=== PATIENT | female | born 1940 | race Two or more races ===

== ENCOUNTER 2017-10-02 02:39 | Inpatient (IN) | payer MEDICARE ==
[2017-10-02] MEDS ORDERED: FUROSEMIDE INJ/PF 40 MG/4 ML SDV IV ONE (03:02)
[2017-10-02] MEDS ORDERED: LORAZEPAM INJ 2 MG/1 ML VIAL IV ONE (03:02)
--- NOTE | 2017-10-02 03:02 | ER Document Report ---
ED General - General Stated Complaint: SHORTNESS OF BREATH Time Seen by Provider: 10/02/17 02:44 Notes: Patient is a 69-year-old female presents with complaint of sudden onset of shortness of breath when 11 PM. She is down visiting from [place]. She came in via a 2 hour flight approximately 1-2 weeks ago. No recent fevers or infections. No vomiting. She admits to some pressure in her chest and some difficulty breathing. She does have history of atrial fibrillation CHF. She was first diagnosed 1 year ago in [place]. At that time she was placed on Eliquis and medications for rate control. She continues to be on Cardizem as well as Eliquis as well as several other medications for blood pressure and high cholesterol diabetes. She does not have a local primary care doctor. She does admit to some anxiety but says she always feels little bit anxious whenever she is in the hospital. She does admit that she has some pain in both her legs. Said the pain is equal and she is also had some swelling. Patient is Guamanian-speaking and therefore had assistance from Amy Guamanian-speaking nurse, to help translate. - Related Data Allergies/Adverse Reactions: acetaminophen [From Tylenol] Allergy (Verified 10/02/17 03:15) Penicillins Allergy (Verified 10/02/17 03:15) adhesive tape Adverse Reaction (Verified 10/02/17 03:15) Past Medical History - Social History Smoking Status: Unknown if Ever Smoked Frequency of alcohol use: None Drug Abuse: None Family History: Reviewed & Not Pertinent Review of Systems - Review of Systems Notes: My Normal Review Basic REVIEW OF SYSTEMS: CONSTITUTIONAL : Denies fever, chills, or sweats. Denies recent illness. EENT: Denies eye, ear, throat, or mouth pain or symptoms. Denies nasal or sinus congestion. CARDIOVASCULAR: Chest pressure. RESPIRATORY: Difficulty breathing. GASTROINTESTINAL: Denies abdominal pain. Denies nausea, vomiting, or diarrhea. MUSCULOSKELETAL: Denies neck or back pain or joint pain or swelling. SKIN: Denies rash or skin lesions. HEMATOLOGIC : On Eliquis NEUROLOGICAL: Denies altered mental status or loss of consciousness. Denies headache. Denies weakness or paralysis or loss of use of either side. Denies problems with gait or speech. Denies sensory or motor loss. ALL OTHER SYSTEMS REVIEWED AND NEGATIVE. Physical Exam - Vital signs Vitals: Resp BP Pulse Ox 34 H 113/88 H 100 10/02/17 02:48 10/02/17 02:48 10/02/17 02:48 - Notes Notes: General Appearance: Well nourished, alert, cooperative, no acute distress, no obvious discomfort. Vitals: reviewed, See vital signs table. Head: no swelling or tenderness to the head Eyes: PERRL, EOMI, Conjuctiva clear Mouth: No decreasd moisture Throat: No tonsillar inflammation, No airway obstruction Neck: Supple, no neck tenderness Lungs: No wheezing, No rales, No rhonci, mild accessory muscle use. Some tachypnea. Heart: Tachycardic rate, irregular rythm, No murmur, no rub Abdomen: Normal BS, soft, No rigidity, No abdominal tenderness, No guarding, no rebound, no abdominal masses, no organomegaly Extremities: strength 5/5 in all extremities, good pulses in all extremities, no swelling or tenderness in the extremities, 2+ bilateral lower extremity edema. Skin: warm, dry, appropriate color, no rash Neuro: speech clear, oriented x 3, normal affect, responds appropriately to questions. Course - Re-evaluation Re-evalutation: 10/02/17 04:08 Patient continues to have some dyspnea. Number the patient goes to move to go to the toilet she does have increased difficulty breathing and her heart rate goes well up. We have started on Cardizem drip. Given her Lasix. Chest x-ray not yet read by radiology however to me appears that she has some pulmonary vascular congestion on the chest x-ray. Feel that she does require admission. I did speak with the hospitalist, Dr. Johnson, who agrees to evaluate the patient for admission Patient does complain of some back pain. Seems to be worse with movement. I do not suspect PE and that the patient is already on Eliquis and the patient has signs for vascular congestion on chest x-ray in conjunction with A. fib with RVR. This is more consistent with a CHF exacerbation. Dictation of this chart was performed using voice recognition software; therefore, there may be some unintended grammatical errors. 10/02/17 04:09 - Vital Signs Vital signs: Temp Pulse Resp BP Pulse Ox 22 H 145/113 H 97 10/02/17 03:03 10/02/17 03:03 10/02/17 03:03 - Laboratory Result Diagrams: 10/02/17 03:08 10/02/17 03:08 Laboratory results interpreted by me: 10/02/17 10/02/17 03:08 03:08 Glucose 199 H NT-Pro-B Natriuret Pep 663 H - EKG Interpretation by Me Additional EKG results interpreted by me: 10/02/17 03:05 EKG is reviewed and interpreted by me. EKG shows atrial fibrillation with rate of [address] segment elevation or depression. QRS duration QTc intervals are within normal range. No old EKG available for comparison. Discharge - Discharge Clinical Impression: Atrial fibrillation with RVR CHF (congestive heart failure) Qualifiers: Heart failure type: unspecified Heart failure chronicity: acute on chronic Qualified Code(s): I50.9 - Heart failure, unspecified Condition: Stable Disposition: ADMITTED INPATIENT Admitting Provider: Hospitalist Unit Admitted: [facility]
[2017-10-02 03:20] LABS: ABSOLUTE BASOPHILS # (AUTO) 0.1 10^3/uL (0.0-0.2); ABSOLUTE EOSINOPHILS # (AUTO) 0.1 10^3/uL (0.0-0.6); ABSOLUTE MONOCYTES (AUTO) 0.6 10^3/uL (0.1-1.4); ABSOLUTE NEUT (AUTO) 4.4 10^3/uL (1.7-8.2); BASOPHILS % (AUTO) 0.6 % (0-2); EOSINOPHILS % (AUTO) 1.8 % (0-6); HEMATOCRIT 39.6 % (36.0-47.0); HEMOGLOBIN 13.2 g/dL (12.0-15.5); LYMPHOCYTES % (AUTO) 36.5 % (13-45); MEAN CORPUSCULAR HEMOGLOBIN 30.6 pg (27.0-33.4); MEAN CORPUSCULAR HGB CONC 33.3 g/dL (32.0-36.0); MEAN CORPUSCULAR VOLUME 92 fl (80-97); MONOCYTES % (AUTO) 7.7 % (3-13); PLATELET COUNT 292 10^3/uL (150-450); RED BLOOD COUNT 4.32 10^6/uL (3.72-5.28); RED CELL DISTRIBUTION WIDTH 13.8 % (11.5-14.0); SEGMENTED NEUTROPHILS % (AUTO) 53.4 % (42-78); TOTAL CELLS COUNTED % (AUTO) 100 %; WHITE BLOOD COUNT 8.3 10^3/uL (4.0-10.5)
[2017-10-02 03:39] LABS: ALANINE AMINOTRANSFERASE 38 U/L (9-52); ALBUMIN 4.2 g/dL (3.5-5.0); ALKALINE PHOSPHATASE 74 U/L (38-126); ANION GAP 13 (5-19); ASPARTATE AMINO TRANSFERASE 26 U/L (14-36); BILIRUBIN,DIRECT 0.1 mg/dL (0.0-0.4); BILIRUBIN,TOTAL 0.2 mg/dL (0.2-1.3); BLOOD UREA NITROGEN 12 mg/dL (7-20); CALCIUM 9.4 mg/dL (8.4-10.2); CARBON DIOXIDE 25 mmol/L (22-30); CHLORIDE 103 mmol/L (98-107); GLUCOSE 199 mg/dL (75-110); SODIUM 141.2 mmol/L (137-145); TOTAL PROTEIN 6.9 g/dL (6.3-8.2)
[2017-10-02] MEDS ORDERED: DILTIAZEM HCL INJ 25 MG/5 ML VIAL IV ONE (03:45)
[2017-10-02] MEDS ORDERED: DILTIAZEM HCL/D5W 125 MG/125 ML RTUINJ IV PRN ×2 (03:46→04:04)
[2017-10-02 03:56] LABS: TROPONIN I 0.036 ng/mL
[2017-10-02] MEDS ORDERED: MAG HYDROX/AL HYDROX/SIMETH SUSP 30 ML UDCUP PO PRN (04:04)
--- NOTE | 2017-10-02 04:10 | RADIOLOGY REPORT (SQ) ---
EXAM DESCRIPTION: CHEST SINGLE VIEW CLINICAL HISTORY: 77 years Female, dyspnea COMPARISON: None. NUMBER OF VIEWS/TECHNIQUE: 1/AP LIMITATIONS: None. FINDINGS: Small right basilar opacity, moderate central pulmonary edema pattern, mild interstitial markings, thickened right minor fissure, normal cardiac silhouette, atherosclerosis, and intact bony thorax. IMPRESSION: [id number] pulmonary edema pattern with likely small right effusion. Differential diagnosis includes small right basilar pneumonia/atelectasis. Recommend CR/CT surveillance including at 7-12 weeks following initiation of clinically warranted therapy.
[2017-10-02] MEDS ORDERED: HEPARIN SOD (PORCINE) 5,000 UNIT/ML 1 ML SYRINGE SUBCUT SCH (06:00)
--- NOTE | 2017-10-02 06:50 | PDOC H&P ---
History of Present Illness Admission Date/PCP: 10/02/17 04:19 Patient complains of: Shortness of breath History of Present Illness: ANOOP JHAVERI is a 77 year old Armenian-speaking only female with a past medical history of diabetes, osteoarthritis and atrial fibrillation who is visiting from [place]. Patient presents with 12 hours of palpitations and shortness of breath denying chest pain nausea vomiting. In the emergency room she is found to have uncontrolled A. fib with RVR in the 140s with a chest x- ray with mild pulmonary edema but otherwise unremarkable workup. Evaluation of her medications bottles suggest she may have missed up to 2 weeks of Cardizem. That said she is treated with oxygen IV Lasix and diltiazem and referred to the hospitalist for admission. Past Medical History Cardiac Medical History: Reports: Atrial Fibrillation, Hypertension Social History Information Source: Patient Lives with: Family Smoking Status: Unknown if Ever Smoked Frequency of Alcohol Use: None Drugs: None - Advance Directive Resuscitation Status: Full Code Family History Family History: DM, Hypertension Parental Family History Reviewed: Yes Children Family History Reviewed: Yes Sibling(s) Family History Reviewed.: Yes Medication/Allergy Home Medications: Apixaban [Eliquis] 1 tab PO BID 10/02/17 Cilostazol [Cilostazol] 1 tab PO BID 10/02/17 Diltiazem HCl [Cartia Xt] 1 cap PO DAILY 10/02/17 Duloxetine HCl [Duloxetine HCl] 1 cap PO DAILY 10/02/17 Gabapentin [Gabapentin] 1 cap PO DAILY 10/02/17 Glipizide [Glipizide] 1 tab PO DAILY 10/02/17 Losartan Potassium [Losartan Potassium] 1 tab PO DAILY 10/02/17 Metformin HCl [Metformin HCl] 1 tab PO BID 10/02/17 Omeprazole [Omeprazole] 1 cap PO BID 10/02/17 Pravastatin Sodium [Pravastatin Sodium] 1 tab PO DAILY 10/02/17 Spironolactone [Spironolactone] 1 tab PO DAILY 10/02/17 Allergies/Adverse Reactions: acetaminophen [From Tylenol] Allergy (Verified 10/02/17 03:15) Penicillins Allergy (Verified 10/02/17 03:15) adhesive tape Adverse Reaction (Verified 10/02/17 03:15) Review of Systems Constitutional: ABSENT: chills, fever(s), headache(s), weight gain, weight loss Eyes: ABSENT: visual disturbances Ears: ABSENT: hearing changes Cardiovascular: PRESENT: as per HPI, dyspnea on exertion, palpitations. ABSENT : chest pain, edema, orthropnea Respiratory: PRESENT: dyspnea. ABSENT: cough, hemoptysis Gastrointestinal: ABSENT: abdominal pain, constipation, diarrhea, hematemesis, hematochezia, nausea, vomiting Genitourinary: ABSENT: dysuria, hematuria Musculoskeletal: ABSENT: joint swelling Integumentary: ABSENT: rash, wounds Neurological: ABSENT: abnormal gait, abnormal speech, confusion, dizziness, focal weakness, syncope Psychiatric: ABSENT: anxiety, depression, homidical ideation, suicidal ideation Endocrine: ABSENT: cold intolerance, heat intolerance, polydipsia, polyuria Hematologic/Lymphatic: ABSENT: easy bleeding, easy bruising Physical Exam Vital Signs: Temp Pulse Resp BP Pulse Ox 98.9 F 22 H 141/93 H 99 10/02/17 04:04 10/02/17 06:02 10/02/17 06:02 10/02/17 06:02 General appearance: PRESENT: cooperative, mild distress, obese Head exam: PRESENT: atraumatic, normocephalic Eye exam: PRESENT: conjunctiva pink, EOMI, PERRLA. ABSENT: scleral icterus Ear exam: PRESENT: normal external ear exam Mouth exam: PRESENT: moist, tongue midline Neck exam: ABSENT: carotid bruit, JVD, lymphadenopathy, thyromegaly Respiratory exam: PRESENT: accessory muscle use, crackles, tachypnea Cardiovascular exam: PRESENT: irregular rhythm, tachycardia Pulses: PRESENT: normal carotid pulses Vascular exam: PRESENT: normal capillary refill GI/Abdominal exam: PRESENT: normal bowel sounds, soft. ABSENT: distended, guarding, mass, organolmegaly, rebound, tenderness Rectal exam: PRESENT: deferred Extremities exam: PRESENT: full ROM, +1 edema. ABSENT: calf tenderness, clubbing, pedal edema Neurological exam: PRESENT: alert, awake, oriented to person, oriented to place , oriented to time, oriented to situation, CN II-XII grossly intact. ABSENT: motor sensory deficit Psychiatric exam: PRESENT: appropriate affect, normal mood. ABSENT: homicidal ideation, suicidal ideation Skin exam: PRESENT: dry, intact, warm. ABSENT: cyanosis, rash Results Impressions: Chest X-Ray 10/02/17 02:58 IMPRESSION: [id number] pulmonary edema pattern with likely small right effusion. Differential diagnosis includes small right basilar pneumonia/atelectasis. Recommend CR/CT surveillance including at 7-12 weeks following initiation of clinically warranted therapy. Assessment & Plan - Diagnosis (1) Atrial fibrillation with RVR Is this a current diagnosis for this admission?: Yes Plan: Telemetry bed, IV Cardizem transition to p.o., education. (2) CHF (congestive heart failure) Qualifiers: Heart failure type: unspecified Heart failure chronicity: acute on chronic Qualified Code(s): I50.9 - Heart failure, unspecified Is this a current diagnosis for this admission?: Yes Plan: Secondary to A. fib with RVR, IV Lasix initiated, follow-up chemistry (3) Diabetes Is this a current diagnosis for this admission?: Yes Plan: Outpatient regiment with sliding scale insulin coverage. - Time Time Spent: 30 to 50 Minutes
[2017-10-02 07:06] LABS: ABSOLUTE BASOPHILS # (AUTO) 0.1 10^3/uL (0.0-0.2); ABSOLUTE EOSINOPHILS # (AUTO) 0.1 10^3/uL (0.0-0.6); ABSOLUTE LYMPHOCYTES (AUTO) 3.2 10^3/uL (0.5-4.7); ABSOLUTE MONOCYTES (AUTO) 0.8 10^3/uL (0.1-1.4); ABSOLUTE NEUT (AUTO) 5.7 10^3/uL (1.7-8.2); BASOPHILS % (AUTO) 0.8 % (0-2); EOSINOPHILS % (AUTO) 1.1 % (0-6); HEMATOCRIT 39.3 % (36.0-47.0); HEMOGLOBIN 13.2 g/dL (12.0-15.5); LYMPHOCYTES % (AUTO) 32.2 % (13-45); MEAN CORPUSCULAR HEMOGLOBIN 30.9 pg (27.0-33.4); MEAN CORPUSCULAR HGB CONC 33.6 g/dL (32.0-36.0); MEAN CORPUSCULAR VOLUME 92 fl (80-97); MONOCYTES % (AUTO) 7.9 % (3-13); PLATELET COUNT 285 10^3/uL (150-450); RED BLOOD COUNT 4.28 10^6/uL (3.72-5.28); RED CELL DISTRIBUTION WIDTH 13.6 % (11.5-14.0); TOTAL CELLS COUNTED % (AUTO) 100 %; WHITE BLOOD COUNT 9.9 10^3/uL (4.0-10.5)
[2017-10-02 07:19] LABS: ANION GAP 12 (5-19); BLOOD UREA NITROGEN 11 mg/dL (7-20); CALCIUM 9.2 mg/dL (8.4-10.2); CARBON DIOXIDE 27 mmol/L (22-30); CHLORIDE 102 mmol/L (98-107); GLUCOSE 213 mg/dL (75-110); POTASSIUM 4.1 mmol/L (3.6-5.0); SODIUM 141.2 mmol/L (137-145)
[2017-10-02] MEDS ORDERED: APIXABAN 5 MG TABLET PO SCH (08:30)
[2017-10-02] MEDS ORDERED: GLUCAGON,HUMAN RECOMB 1 MG INJ IM PRN (08:33)
[2017-10-02] MEDS ORDERED: DEXTROSE 40% GEL 15 GM TUBE PO PRN ×2 (08:33)
[2017-10-02] MEDS ORDERED: DEXTROSE 50%-WATER 25 GM/50 ML DISP.SYRIN IV PRN ×2 (08:33)
--- NOTE | 2017-10-02 08:57 | EKG REPORT ---
SEVERITY:- ABNORMAL ECG - ATRIAL FIBRILLATION BORDERLINE INFERIOR Q WAVES NONSPECIFIC T ABNORMALITIES, ANT-LAT LEADS : Confirmed by: Norberto Guillaume MD 02-Oct-2017 08:57:01
[2017-10-02] MEDS: APIXABAN 5 MG TABLET PO SCH ×2 (09:20→21:09)
[2017-10-02] MEDS: GABAPENTIN 300 MG CAPSULE PO SCH (09:20)
[2017-10-02] MEDS: DOCUSATE SODIUM 100 MG CAPSULE PO SCH ×2 (09:20→17:50)
[2017-10-02] MEDS: FUROSEMIDE INJ/PF 20 MG/2 ML SDV IV SCH ×2 (09:21→17:50)
[2017-10-02] MEDS ORDERED: CILOSTAZOL 100 MG TABLET PO ONE (09:30)
[2017-10-02] MEDS ORDERED: DILTIAZEM HCL 60 MG TABLET PO ONE ×2 (09:30→13:00)
--- NOTE | 2017-10-02 10:12 | Progress Note ---
Provider Note Provider Note: This 77-year-old woman who was admitted to the hospitalist service this morning. She was admitted with A. fib with RVR, congestive heart failure. I have seen and evaluated this morning. Patient states that she is feeling considerably better. She is breathing better. She is not having chest pain or feeling of palpitations. Her breathing does not feel back to normal but better nonetheless. No nausea vomiting constipation or diarrhea. She has been urinating without difficulty. On exam she is lying in her hospital stretcher awake alert oriented no acute distress wearing nasal cannula oxygen. Mucous membranes are moist, tongue midline, neck is supple. She has an irregularly irregular cardiac rhythm and a non-tachycardic rate. Trace pedal edema bilaterally. She has decreased breath sounds at the bilateral bases. No wheezes or rhonchi. Abdomen obese soft nontender nondistended. Assessment: 77-year-old woman with uncontrolled A. fib with RVR, CHF with exacerbation, slightly elevated troponin. Underlying problems include type 2 diabetes, restless leg syndrome, hypertension. Plan: 1. A. fib with RVR: Continue diltiazem drip and start her oral diltiazem at 60 mg p.o. every 8 hours. We will wean down drip as indicated her heart rate below 110. She is on Eliquis for stroke prophylaxis and that has been restarted 2. CHF exacerbation. This patient is from out of town and we do not have an echo in the system. She is on Lasix 20 mg IV every 12 hours for now. Will monitor her electrolytes and her clinical status closely. She does have a pleural effusion which may be related to the CHF but may need further workup if it does not improve. 3. Elevated troponin. Patient is currently chest pain-free. We will continue to monitor troponins. EKG does have nonspecific changes and old Q waves. She does have diabetes, coronary equivalent. 4. Hypertension. Better controlled with the diltiazem drip. Will start her losartan probably later today while monitoring her blood pressure for now. 5. Type 2 diabetes. Will hold her metformin while she is in the hospital and start bolus insulin as needed. DVT prophylaxis she is on Eliquis Diabetic diet to continue
[2017-10-02] MEDS ORDERED: DILTIAZEM HCL 60 MG TABLET PO SCH (14:00)
[2017-10-02] MEDS ORDERED: DILTIAZEM HCL 90 MG TABLET PO SCH (14:00)
[2017-10-02] MEDS: CILOSTAZOL 100 MG TABLET PO SCH (15:33)
[2017-10-02] MEDS ORDERED: LEVOFLOXACIN 500 MG TABLET PO ONE (16:12)
[2017-10-02] MEDS ORDERED: LEVALBUTEROL HCL NEB 1.25 MG/3 ML AMPUL NEB PRN (16:14)
[2017-10-02] MEDS: IPRATROPIUM/ALBUTEROL 0.5-2.5 MG/3 ML AMPUL NEB SCH (19:33)
[2017-10-02] MEDS: DILTIAZEM HCL 60 MG TABLET PO SCH (21:09)
[2017-10-02] MEDS ORDERED: LACTULOSE SYRUP 20 GM/30 ML UDCUP PO ONE (21:15)
[2017-10-03] MEDS: IPRATROPIUM/ALBUTEROL 0.5-2.5 MG/3 ML AMPUL NEB SCH ×4 (01:48→19:36)
[2017-10-03 04:57] LABS: ABSOLUTE BASOPHILS # (AUTO) 0.1 10^3/uL (0.0-0.2); ABSOLUTE EOSINOPHILS # (AUTO) 0.1 10^3/uL (0.0-0.6); ABSOLUTE LYMPHOCYTES (AUTO) 2.6 10^3/uL (0.5-4.7); ABSOLUTE MONOCYTES (AUTO) 0.6 10^3/uL (0.1-1.4); ABSOLUTE NEUT (AUTO) 3.7 10^3/uL (1.7-8.2); BASOPHILS % (AUTO) 0.9 % (0-2); EOSINOPHILS % (AUTO) 1.4 % (0-6); HEMATOCRIT 37.1 % (36.0-47.0); HEMOGLOBIN 12.5 g/dL (12.0-15.5); LYMPHOCYTES % (AUTO) 36.8 % (13-45); MEAN CORPUSCULAR HGB CONC 33.7 g/dL (32.0-36.0); MEAN CORPUSCULAR VOLUME 92 fl (80-97); MONOCYTES % (AUTO) 8.4 % (3-13); PLATELET COUNT 253 10^3/uL (150-450); RED BLOOD COUNT 4.03 10^6/uL (3.72-5.28); SEGMENTED NEUTROPHILS % (AUTO) 52.5 % (42-78); TOTAL CELLS COUNTED % (AUTO) 100 %; WHITE BLOOD COUNT 7.1 10^3/uL (4.0-10.5)
[2017-10-03 05:26] LABS: ANION GAP 13 (5-19); BLOOD UREA NITROGEN 11 mg/dL (7-20); CALCIUM 8.9 mg/dL (8.4-10.2); CARBON DIOXIDE 30 mmol/L (22-30); CHLORIDE 100 mmol/L (98-107); CREATINE KINASE 44 U/L (30-135); GLUCOSE 178 mg/dL (75-110); SODIUM 143.2 mmol/L (137-145)
[2017-10-03] MEDS: DILTIAZEM HCL 60 MG TABLET PO SCH ×3 (05:44→17:10)
[2017-10-03] MEDS: APIXABAN 5 MG TABLET PO SCH ×2 (10:15→22:10)
[2017-10-03] MEDS: FUROSEMIDE INJ/PF 20 MG/2 ML SDV IV SCH ×2 (10:15→17:10)
[2017-10-03] MEDS: GABAPENTIN 300 MG CAPSULE PO SCH (10:15)
[2017-10-03] MEDS: DOCUSATE SODIUM 100 MG CAPSULE PO SCH ×2 (10:15→17:10)
[2017-10-03] MEDS: CILOSTAZOL 100 MG TABLET PO SCH ×2 (10:15→17:10)
[2017-10-03] MEDS ORDERED: SPIRONOLACTONE 25 MG TABLET PO ONE (13:00)
--- NOTE | 2017-10-03 15:00 | PDOC PROGRESS REPORT ---
Subjective Progress Note for:: 10/03/17 Subjective:: Pt is feeling better. Her breathing is close to normal. She tells me she has nasal septum problems since childhood that cause her to have a nasal sound. She would like to go home but understands she may not be quite ready. No chest discomfort. Her HR continues to be labile. NO fever or chills, no abd pain or bowel problems, no dysuria. Has been coughing some without phlegm. Slept better last night,. Eating fine. Reason For Visit: CONGESTIVE HEART FAILURE,ATRIAL FIBRILLATION WITH Physical Exam Vital Signs: Temp Pulse Resp BP Pulse Ox 98.1 F 87 18 117/81 97 10/03/17 12:18 10/03/17 14:07 10/03/17 14:07 10/03/17 12:18 10/03/17 14:07 Intake & Output 10/02/17 10/03/17 10/04/17 06:59 06:59 06:59 Intake Total 150 Output Total 400 1200 Balance -400 -1050 Weight 98.5 kg General appearance: PRESENT: no acute distress, cooperative, morbidly obese Head exam: PRESENT: atraumatic, normocephalic Eye exam: PRESENT: conjunctiva pink, EOMI Ear exam: PRESENT: normal external ear exam Mouth exam: PRESENT: moist, neck supple Neck exam: ABSENT: lymphadenopathy Respiratory exam: PRESENT: decreased breath sounds, wheezes. ABSENT: rales, rhonchi, unlabored Cardiovascular exam: PRESENT: irregular rhythm, tachycardia GI/Abdominal exam: PRESENT: normal bowel sounds, soft. ABSENT: distended, tenderness Rectal exam: PRESENT: deferred Extremities exam: ABSENT: tenderness Neurological exam: PRESENT: alert, awake, oriented to person, oriented to place , oriented to situation, CN II-XII grossly intact Psychiatric exam: PRESENT: appropriate affect. ABSENT: anxious Skin exam: PRESENT: dry, intact, warm Results Laboratory Results: 10/03/17 04:19 10/03/17 04:19 10/03/17 10/03/17 04:19 04:19 WBC 7.1 RBC 4.03 Hgb 12.5 Hct 37.1 MCV 92 MCH 31.0 MCHC 33.7 RDW 14.0 Plt Count 253 Seg Neutrophils % 52.5 Lymphocytes % 36.8 Monocytes % 8.4 Eosinophils % 1.4 Basophils % 0.9 Absolute Neutrophils 3.7 Absolute Lymphocytes 2.6 Absolute Monocytes 0.6 Absolute Eosinophils 0.1 Absolute Basophils 0.1 Sodium 143.2 Potassium 4.0 Chloride 100 Carbon Dioxide 30 Anion Gap 13 BUN 11 Creatinine 0.65 Est GFR ( Amer) > 60 Est GFR (Non-Af Amer) > 60 Glucose 178 H Calcium 8.9 10/02/17 10/02/17 10/02/17 09:55 15:40 21:45 Creatine Kinase CK-MB (CK-2) Troponin I 0.030 0.031 0.026 10/03/17 10/03/17 04:19 04:19 Creatine Kinase 44 CK-MB (CK-2) 1.13 Troponin I Impressions: Chest X-Ray 10/02/17 02:58 IMPRESSION: [id number] pulmonary edema pattern with likely small right effusion. Differential diagnosis includes small right basilar pneumonia/atelectasis. Recommend CR/CT surveillance including at 7-12 weeks following initiation of clinically warranted therapy. Assessment & Plan - Diagnosis (1) HTN (hypertension) Qualifiers: Hypertension type: essential hypertension Qualified Code(s): I10 - Essential (primary) hypertension Is this a current diagnosis for this admission?: Yes Plan: Pressure has been well controlled and was 117/81 this morning. I have increased her diltiazem secondary to heart rate and we will monitor blood pressure closely. (2) Restless leg syndrome Is this a current diagnosis for this admission?: Yes Plan: Stable, continue Pletal (3) Atrial fibrillation with RVR Is this a current diagnosis for this admission?: Yes Plan: Patient's heart rate has been in the 80s this morning in the low 100s this afternoon. When she got up to walk her heart rate was in the 140s. I have increased her diltiazem from 60 mg every 8 hours to 60 mg p.o. every 6 hours. For this reason I am keeping her in the hospital again night and will reevaluate her tomorrow. (4) CHF (congestive heart failure) Qualifiers: Heart failure type: unspecified Heart failure chronicity: acute on chronic Qualified Code(s): I50.9 - Heart failure, unspecified Is this a current diagnosis for this admission?: Yes Plan: Patient has pulmonary edema and pleural effusions on chest x-ray. Her breathing is improving with Lasix 20 mg IV every 12 hours. Will recheck chest x -ray tomorrow. Will order echocardiogram for tomorrow as well. (5) Diabetes Qualifiers: Diabetes mellitus type: type 2 Is this a current diagnosis for this admission?: Yes Plan: Continue current care. Will restart her on her oral glycemic meds on discharge. (6) Bronchitis Is this a current diagnosis for this admission?: Yes Plan: I started patient on doxycycline 100 mg p.o. twice daily. There was note of possible pneumonia on chest x-ray but clinically patient does not appear to have pneumonia. She is not febrile. She does not have a white blood cell count. Not producing phlegm. For now I will treat her for bronchitis and will follow closely. - Time Time Spent with patient: 25-34 minutes Medications reviewed and adjusted accordingly: Yes Anticipated discharge: Home Within: within 48 hours
--- NOTE | 2017-10-03 16:22 | RADIOLOGY REPORT (SQ) ---
EXAM DESCRIPTION: CHEST PA/LAT COMPLETED DATE/TIME: 10/03/2017 4:09 pm REASON FOR STUDY: eval pulmonary edema COMPARISON: 10/02/2017. NUMBER OF VIEWS: Two views. TECHNIQUE: Frontal and lateral radiographic views of the chest acquired. LIMITATIONS: None. FINDINGS: LUNGS AND PLEURA: No opacities, masses or pneumothorax. No pleural effusion. MEDIASTINUM AND HILAR STRUCTURES: No masses or contour abnormality. HEART AND VASCULAR STRUCTURES: Cardiac enlargement. Vascular congestion. BONES: No acute findings. HARDWARE: None in the chest. OTHER: No other significant finding. IMPRESSION: CARDIAC ENLARGEMENT. VASCULAR CONGESTION. NO CHANGE. TECHNICAL DOCUMENTATION: JOB ID: [id number] [employer]- All Rights Reserved Reading location - IP/workstation name: [email or web address]
[2017-10-03] MEDS: INSULIN LISPRO 100 UNIT/ML 3 ML VIAL SUBCUT PRN ×2 (17:22→22:10)
[2017-10-03] MEDS ORDERED: NA PHOS,M-B/NA PHOS,DI-BA (ADULT) 133 ML ENEMA PR PRN (21:31)
[2017-10-03] MEDS ORDERED: LACTULOSE SYRUP 20 GM/30 ML UDCUP PO ONE (21:45)
[2017-10-03] MEDS: DOXYCYCLINE HYCLATE 100 MG TABLET PO SCH (22:10)
[2017-10-03] MEDS: DILTIAZEM HCL 90 MG TABLET PO SCH (23:15)
[2017-10-04] MEDS: IPRATROPIUM/ALBUTEROL 0.5-2.5 MG/3 ML AMPUL NEB SCH ×4 (01:54→20:20)
[2017-10-04 05:15] LABS: HEMATOCRIT 36.6 % (36.0-47.0); HEMOGLOBIN 12.4 g/dL (12.0-15.5); MEAN CORPUSCULAR HEMOGLOBIN 31.1 pg (27.0-33.4); MEAN CORPUSCULAR HGB CONC 33.9 g/dL (32.0-36.0); MEAN CORPUSCULAR VOLUME 92 fl (80-97); PLATELET COUNT 271 10^3/uL (150-450); RED BLOOD COUNT 3.99 10^6/uL (3.72-5.28); RED CELL DISTRIBUTION WIDTH 13.7 % (11.5-14.0)
[2017-10-04 05:32] LABS: ANION GAP 12 (5-19); BLOOD UREA NITROGEN 13 mg/dL (7-20); CALCIUM 8.9 mg/dL (8.4-10.2); CARBON DIOXIDE 28 mmol/L (22-30); CHLORIDE 101 mmol/L (98-107); GLUCOSE 182 mg/dL (75-110); POTASSIUM 3.4 mmol/L (3.6-5.0); SODIUM 140.7 mmol/L (137-145)
[2017-10-04] MEDS: DILTIAZEM HCL 90 MG TABLET PO SCH ×3 (06:08→17:03)
[2017-10-04] MEDS: CILOSTAZOL 100 MG TABLET PO SCH ×2 (08:17→15:58)
[2017-10-04] MEDS ORDERED: SPIRONOLACTONE 25 MG TABLET PO SCH (10:00)
[2017-10-04] MEDS: APIXABAN 5 MG TABLET PO SCH ×2 (10:53→21:44)
[2017-10-04] MEDS: SPIRONOLACTONE 25 MG TABLET PO SCH (10:53)
[2017-10-04] MEDS: DOXYCYCLINE HYCLATE 100 MG TABLET PO SCH ×2 (10:53→21:44)
[2017-10-04] MEDS: GABAPENTIN 300 MG CAPSULE PO SCH (10:53)
[2017-10-04] MEDS: DOCUSATE SODIUM 100 MG CAPSULE PO SCH ×2 (10:53→17:03)
[2017-10-04] MEDS: FUROSEMIDE INJ/PF 20 MG/2 ML SDV IV SCH (10:53)
[2017-10-04] MEDS ORDERED: KETOROLAC TROMETHAMINE INJ/PF 30 MG/1 ML SDV IV ONE (12:15)
[2017-10-04] MEDS ORDERED: OXYCODONE HCL IR 5 MG TABLET PO PRN (14:49)
--- NOTE | 2017-10-04 15:05 | PDOC PROGRESS REPORT ---
Subjective Progress Note for:: 10/04/17 Subjective:: The patient is a 77-year-old [place]yan-speaking only female with past medical history of diabetes, osteoarthritis, and atrial fibrillation who was admitted on 10/02/17 with David nelson with RVR. The patient is seen on rounds with the use of translating services. She tells me that she is feeling well today. She denies chest pain, palpitations, dyspnea , orthopnea. Her primary complaint today is sciatica to the right leg which she has experienced in the past. She requests a heating pad and mild pain medication if available. She is hopeful to be discharged soon, however, knows that she has an echocardiogram pending and that her heart rate is still viable which may delay her discharge another day. She has no other questions or concerns. Reason For Visit: CONGESTIVE HEART FAILURE,ATRIAL FIBRILLATION WITH Physical Exam Vital Signs: Temp Pulse Resp BP Pulse Ox 98.7 F 95 18 143/99 H 96 10/04/17 12:16 10/04/17 14:14 10/04/17 14:14 10/04/17 12:16 10/04/17 14:14 Intake & Output 10/03/17 10/04/17 10/05/17 06:59 06:59 06:59 Intake Total 150 450 450 Output Total 1200 Balance -1050 450 450 Weight 98.5 kg 99.3 kg General appearance: PRESENT: no acute distress, cooperative, obese, well- developed, well-nourished Head exam: PRESENT: atraumatic, normocephalic Eye exam: PRESENT: conjunctiva pink, EOMI, PERRLA. ABSENT: scleral icterus Ear exam: PRESENT: normal external ear exam Mouth exam: PRESENT: moist, tongue midline Neck exam: ABSENT: carotid bruit, JVD, lymphadenopathy, thyromegaly Respiratory exam: PRESENT: clear to auscultation sveta, decreased breath sounds - Bibasilar, symmetrical, unlabored. ABSENT: rales, rhonchi, wheezes Cardiovascular exam: PRESENT: irregular rhythm, +S1, +S2. ABSENT: diastolic murmur, rubs, systolic murmur, tachycardia Pulses: PRESENT: normal dorsalis pedis pul Vascular exam: PRESENT: normal capillary refill GI/Abdominal exam: PRESENT: normal bowel sounds, soft. ABSENT: distended, guarding, mass, organolmegaly, rebound, tenderness Rectal exam: PRESENT: deferred Extremities exam: PRESENT: full ROM. ABSENT: calf tenderness, clubbing, pedal edema Neurological exam: PRESENT: alert, awake, oriented to person, oriented to place , oriented to time, oriented to situation, CN II-XII grossly intact. ABSENT: motor sensory deficit Psychiatric exam: PRESENT: appropriate affect, normal mood. ABSENT: homicidal ideation, suicidal ideation Skin exam: PRESENT: dry, intact, warm. ABSENT: cyanosis, rash Results Laboratory Results: 10/04/17 04:26 10/04/17 04:26 10/04/17 10/04/17 04:26 04:26 WBC 7.0 RBC 3.99 Hgb 12.4 Hct 36.6 MCV 92 MCH 31.1 MCHC 33.9 RDW 13.7 Plt Count 271 Sodium 140.7 Potassium 3.4 L Chloride 101 Carbon Dioxide 28 Anion Gap 12 BUN 13 Creatinine 0.55 Est GFR ( Amer) > 60 Est GFR (Non-Af Amer) > 60 Glucose 182 H Calcium 8.9 10/02/17 10/02/17 10/02/17 09:55 15:40 21:45 Creatine Kinase CK-MB (CK-2) Troponin I 0.030 0.031 0.026 10/03/17 10/03/17 04:19 04:19 Creatine Kinase 44 CK-MB (CK-2) 1.13 Troponin I Impressions: Chest X-Ray 10/03/17 00:00 IMPRESSION: CARDIAC ENLARGEMENT. VASCULAR CONGESTION. NO CHANGE. Assessment & Plan - Diagnosis (1) Atrial fibrillation with RVR Is this a current diagnosis for this admission?: Yes Plan: Improved; the patient's heart rate ranges from 80s-95 while at rest but does jump to 117 with minimal activity. The patient denies chest pain or palpitations. The patient is admitted to [facility] on continuous cardiac telemetry. She was initially placed on a diltiazem drip which has been transitioned to p.o. We will continue diltiazem 60 mg every 6 hours. We will continue the patient's home dose Eliquis (2) CHF (congestive heart failure) Qualifiers: Heart failure type: unspecified Heart failure chronicity: acute on chronic Qualified Code(s): I50.9 - Heart failure, unspecified Is this a current diagnosis for this admission?: Yes Plan: The patient was noted to have pulmonary edema with pleural effusions on chest x- ray. ProBNP was elevated to 663. Echocardiogram is pending. Cardiac diet and daily weights. Continue diuresis with IV furosemide. (3) Sciatica, right side Is this a current diagnosis for this admission?: Yes Plan: The patient was provided a one-time dose of Toradol 30 mg IV with slight improvement in her pain. Her home medications gabapentin and Cymbalta are resumed. Will provide oxycodone 2.5 mg q 6 hrs during acute flare. Heating pad is ordered, encourage mobility. (4) Bronchitis Is this a current diagnosis for this admission?: Yes Plan: Improved. The patient was placed on doxycycline 100 mg p.o. twice daily. She is provided scheduled duo nebs and Xopenex as needed. We will monitor closely for consideration p.o. steroids. (5) Diabetes Qualifiers: Diabetes mellitus type: type 2 Is this a current diagnosis for this admission?: Yes Plan: The patient is on a consistent carb diet. Accu-Cheks before meals and at bedtime with Humalog for sliding scale coverage. We will restart her oral glycemic medications upon discharge. (6) HTN (hypertension) Qualifiers: Hypertension type: essential hypertension Qualified Code(s): I10 - Essential (primary) hypertension Is this a current diagnosis for this admission?: Yes Plan: The patient's blood pressure is slightly elevated today. Cardiac diet. She is currently on diltiazem 60 mg every 6 hours. Consider resuming her home medication, losartan. - Time Time Spent with patient: 25-34 minutes Medications reviewed and adjusted accordingly: Yes Anticipated discharge: Home Within: within 24 hours
[2017-10-04] MEDS ORDERED: POTASSIUM CHLORIDE 10 MEQ TABLET.SA PO ONE (16:30)
[2017-10-04] MEDS ORDERED: DULOXETINE HCL 30 MG CAPSULE.DR PO ONE (17:00)
[2017-10-04] MEDS: INSULIN LISPRO 100 UNIT/ML 3 ML VIAL SUBCUT PRN ×2 (17:02→21:48)
--- NOTE | 2017-10-04 18:21 | XCELERA REPORT ---
[address] [address] Transthoracic Echocardiogram Report Name: ANOOP JHAVERI Age: 77 yrs Gender: Female : 1940 Patient Status: Inpatient Patient Location: [address] [place] [address] Study Date: 10/04/2017 02:49 PM Height: 60 in Weight: 217 lb BSA: 1.9 m2 Procedure: A complete two-dimensional transthoracic echocardiogram was performed (2D, M-mode, spectral and color flow Doppler). The study was technically difficult with many images being suboptimal in quality. Reason For Study: eval CHF Ordering Physician: ARI HOWE Performed By: Josefina Davis Interpretation Summary LV EF is 45% The study was technically difficult with many images being suboptimal in quality. Left ventricular systolic function is mildly reduced. There is mild concentric left ventricular hypertrophy. The left ventricle is grossly normal size. Doppler measurements suggest pseudonormalized left ventricular relaxation, which is associated with grade II/IV or mild to moderate diastolic dysfunction Wall motion cannot be accurately commented on, but no definite regional wall motion abnormalities noted. The right ventricular systolic function is normal. The left atrium is moderately dilated. There is no mitral valve stenosis. There is a trace amount of mitral regurgitation There is no aortic valve stenosis No aortic regurgitation is present. There is a trace to mild amount of tricuspid regurgitation There is mild pulmonary hypertension by echo Right ventricular systolic pressure is estimated to be elevated at 30- 40mmHg. There is no pericardial effusion. MMode/2D Measurements & Calculations RVDd: 3.4 cm LVIDd: 5.2 cmFS: 23.4 % Ao root diam: 3.0 cm IVSd: 1.2 cm LVIDs: 4.0 cmEDV(Teich): 130.8 ml LVPWd: 1.2 cmESV(Teich): 70.0 ml Ao root area: 7.2 cm2 EF(Teich): 46.5 % LA dimension: 4.5 cm LVOT diam: 2.0 cm LVOT area: 3.0 cm2 Doppler Measurements & Calculations MV E max rolly: MV P1/2t max rolly: Ao V2 max: LV V1 max P.2 cm/sec 99.7 cm/sec 165.8 cm/sec 5.8 mmHg MV P1/2t: 69.4 msec Ao max PG: LV V1 max: MVA(P1/2t): 3.2 cm2 11.0 mmHg 119.9 cm/sec MV dec slope: PENELOPE(V,D): 2.2 cm2 420.5 cm/sec2 PA V2 max: TR max rolly: 104.1 cm/sec 280.2 cm/sec PA max PG: TR max P.4 mmHg 4.3 mmHg Left Ventricle The left ventricle is grossly normal size. There is mild concentric left ventricular hypertrophy. Left ventricular systolic function is mildly reduced. LV EF is 45%. Doppler measurements suggest pseudonormalized left ventricular relaxation, which is associated with grade II/IV or mild to moderate diastolic dysfunction. Wall motion cannot be accurately commented on, but no definite regional wall motion abnormalities noted. Right Ventricle The right ventricle is grossly normal size. There is normal right ventricular wall thickness. The right ventricular systolic function is normal. Atria The right atrium is normal. The left atrium is moderately dilated. Interarterial septum not well visualized and not well dopplered. Cannot comment on ASD/PFO presence. Mitral Valve The mitral valve is grossly normal. There is no mitral valve stenosis. There is a trace amount of mitral regurgitation. Aortic Valve The aortic valve is not well visualized secondary to technical limitations. There is no aortic valve stenosis. No aortic regurgitation is present. Tricuspid Valve The tricuspid valve is not well visualized, but is grossly normal. There is no tricuspid stenosis. There is a trace to mild amount of tricuspid regurgitation. There is mild pulmonary hypertension by echo. Right ventricular systolic pressure is estimated to be elevated at 30-40mmHg. Pulmonic Valve The pulmonic valve is not well visualized. Great Vessels The aortic root is not well visualized but is probably normal size. The inferior vena cava appeared normal and decreased > 50% with respiration (RAP 5-10 mmHg). Effusions There is no pericardial effusion. : ARI HOWE > Guevara Mejia
[2017-10-05] MEDS: DILTIAZEM HCL 90 MG TABLET PO SCH ×4 (00:07→17:02)
[2017-10-05] MEDS: IPRATROPIUM/ALBUTEROL 0.5-2.5 MG/3 ML AMPUL NEB SCH ×4 (02:25→19:33)
[2017-10-05 05:30] LABS: ANION GAP 12 (5-19); BLOOD UREA NITROGEN 18 mg/dL (7-20); CALCIUM 9.7 mg/dL (8.4-10.2); CARBON DIOXIDE 28 mmol/L (22-30); CHLORIDE 100 mmol/L (98-107); GLUCOSE 212 mg/dL (75-110); SODIUM 139.8 mmol/L (137-145)
[2017-10-05] MEDS: CILOSTAZOL 100 MG TABLET PO SCH ×2 (08:07→17:02)
[2017-10-05] MEDS: INSULIN LISPRO 100 UNIT/ML 3 ML VIAL SUBCUT PRN ×4 (08:08→22:31)
[2017-10-05] MEDS ORDERED: GABAPENTIN 300 MG CAPSULE PO SCH (10:00)
[2017-10-05] MEDS ORDERED: DULOXETINE HCL PO SCH (10:00)
[2017-10-05] MEDS: FUROSEMIDE INJ/PF 20 MG/2 ML SDV IV SCH (10:30)
[2017-10-05] MEDS: GABAPENTIN 300 MG CAPSULE PO SCH (10:30)
[2017-10-05] MEDS: APIXABAN 5 MG TABLET PO SCH ×2 (10:30→21:23)
[2017-10-05] MEDS: DOXYCYCLINE HYCLATE 100 MG TABLET PO SCH ×2 (10:30→21:23)
[2017-10-05] MEDS: DOCUSATE SODIUM 100 MG CAPSULE PO SCH ×2 (10:30→17:02)
[2017-10-05] MEDS: SPIRONOLACTONE 25 MG TABLET PO SCH (10:30)
[2017-10-05] MEDS: DULOXETINE HCL 30 MG CAPSULE.DR PO SCH (10:30)
--- NOTE | 2017-10-05 18:55 | PDOC PROGRESS REPORT ---
Subjective Progress Note for:: 10/05/17 Subjective:: ANOOP JHAVERI is a 77-year-old Central African-speaking only female with a past medical history of diabetes, osteoarthritis, atrial fibrillation who was admitted on 10/02 with AFIB w/RVR. The patient is seen on rounds with the use of translating services. She is sitting on the edge of the bed and tells me that she is feeling well today. She does complain of shortness of breath when she ambulates to the bathroom. Patient denies chest pain or palpitations. Reason For Visit: CONGESTIVE HEART FAILURE,ATRIAL FIBRILLATION WITH Physical Exam Vital Signs: Temp Pulse Resp BP Pulse Ox 97.8 F 75 18 122/98 H 93 10/05/17 15:10 10/05/17 15:10 10/05/17 15:10 10/05/17 15:10 10/05/17 15:10 Intake & Output 10/04/17 10/05/17 10/06/17 06:59 06:59 06:59 Intake Total 450 1580 670 Balance 450 1580 670 Weight 99.3 kg 99.2 kg 99.2 kg General appearance: PRESENT: no acute distress Head exam: PRESENT: atraumatic Eye exam: PRESENT: conjunctiva pink Mouth exam: PRESENT: moist Neck exam: PRESENT: full ROM Respiratory exam: PRESENT: clear to auscultation sveta Cardiovascular exam: PRESENT: irregular rhythm, tachycardia - When ambulating; Pulses: PRESENT: normal radial pulses, +1 pedal pulses bilateral Vascular exam: PRESENT: normal capillary refill GI/Abdominal exam: PRESENT: normal bowel sounds, soft Rectal exam: PRESENT: deferred Extremities exam: PRESENT: full ROM, pedal edema, +1 edema - Generalized edema Musculoskeletal exam: PRESENT: ambulatory, full ROM Neurological exam: PRESENT: alert, altered, awake, oriented to person, oriented to place, oriented to time, oriented to situation Psychiatric exam: PRESENT: appropriate affect Results Laboratory Results: 10/04/17 04:26 10/05/17 04:37 10/05/17 04:37 Sodium 139.8 Potassium 4.0 Chloride 100 Carbon Dioxide 28 Anion Gap 12 BUN 18 Creatinine 0.64 Est GFR ( Amer) > 60 Est GFR (Non-Af Amer) > 60 Glucose 212 H Calcium 9.7 03/03/18 03/03/18 03/03/18 09:55 15:40 21:45 Creatine Kinase CK-MB (CK-2) Troponin I 0.030 0.031 0.026 10/03/17 10/03/17 04:19 04:19 Creatine Kinase 44 CK-MB (CK-2) 1.13 Troponin I Impressions: Chest X-Ray 10/03/17 00:00 IMPRESSION: CARDIAC ENLARGEMENT. VASCULAR CONGESTION. NO CHANGE. Status: Imported from PACS Assessment & Plan - Diagnosis (1) Atrial fibrillation with RVR Is this a current diagnosis for this admission?: Yes Plan: The patient's heart rate ranges from 80-95, however she has frequent episodes where her heart rate will jump to 130, even while at rest. The patient denies chest pain or palpitations but states she is short of breath when ambulating to the bathroom. Continue cardiac telemetry. Increase Cardizem to 180 mg Q12hrs. Continue patient's home dose Eliquis. (2) CHF (congestive heart failure) Qualifiers: Heart failure type: unspecified Heart failure chronicity: acute on chronic Qualified Code(s): I50.9 - Heart failure, unspecified Is this a current diagnosis for this admission?: Yes Plan: The patient was noted to have pulmonary edema with small pleural effusions on chest x-ray. ProBNP was elevated to 663. ECHOcardiogram shows LVEF 45%, mild concentric left ventricular hypertrophy, grade II/IV mild to moderate diastolic dysfunction. Cardiac diet and daily weights. Continue diuresis with IV Lasix, change to PO tomorrow (3) Bronchitis Is this a current diagnosis for this admission?: Yes Plan: Improved. No audible wheezing or productive cough. Currently on doxycycline day 3, will stop at day 5 if patient appears non-toxic (4) Diabetes Qualifiers: Diabetes mellitus type: type 2 Is this a current diagnosis for this admission?: Yes Plan: Continue carb consistent diet. Continue sliding scale insulin. Will restart oral glycemic medications prior to discharge (5) HTN (hypertension) Qualifiers: Hypertension type: essential hypertension Qualified Code(s): I10 - Essential (primary) hypertension Is this a current diagnosis for this admission?: Yes Plan: Blood pressure is currently well controlled. Continue cardiac diet. Cardizem for heart rate control, monitor for HYPOtension since her dose has been increased today (6) Restless leg syndrome Is this a current diagnosis for this admission?: Yes (7) Sciatica, right side Is this a current diagnosis for this admission?: Yes Plan: Patient denies sciatica pain today. She is currently on her home medications gabapentin and Cymbalta. As needed oxycodone for acute flare. Heating pad is ordered, encourage mobility - Time Time Spent with patient: 25-34 minutes Medications reviewed and adjusted accordingly: Yes Anticipated discharge: Home - Inpatient Certification Based on my medical assessment, after consideration of the patient's comorbidities, presenting symptoms, or acuity I expect that the services needed warrant INPATIENT care.: Yes I certify that my determination is in accordance with my understanding of Medicare's requirements for reasonable and necessary INPATIENT services [42 CFR 412.3e].: Yes Medical Necessity: Risk of Complication if Not Cared For in Hospital - Plan Summary Plan Summary: Ultimately, the plan is to discharge the patient back to [place]
[2017-10-05] MEDS: DILTIAZEM HCL 180 MG CAPSULE.CR PO SCH (22:31)
[2017-10-06] MEDS: IPRATROPIUM/ALBUTEROL 0.5-2.5 MG/3 ML AMPUL NEB SCH ×4 (02:03→19:51)
[2017-10-06] MEDS: INSULIN LISPRO 100 UNIT/ML 3 ML VIAL SUBCUT PRN ×3 (07:43→22:26)
[2017-10-06] MEDS: CILOSTAZOL 100 MG TABLET PO SCH ×2 (07:45→17:38)
[2017-10-06] MEDS: SPIRONOLACTONE 25 MG TABLET PO SCH (11:24)
[2017-10-06] MEDS: APIXABAN 5 MG TABLET PO SCH ×2 (11:24→22:26)
[2017-10-06] MEDS: DOXYCYCLINE HYCLATE 100 MG TABLET PO SCH ×2 (11:25→22:26)
[2017-10-06] MEDS: DILTIAZEM HCL 180 MG CAPSULE.CR PO SCH ×2 (11:25→22:26)
[2017-10-06] MEDS: DULOXETINE HCL 30 MG CAPSULE.DR PO SCH (11:25)
[2017-10-06] MEDS: GABAPENTIN 300 MG CAPSULE PO SCH (11:25)
[2017-10-06] MEDS: FUROSEMIDE INJ/PF 20 MG/2 ML SDV IV SCH (11:26)
[2017-10-06] MEDS: DOCUSATE SODIUM 100 MG CAPSULE PO SCH ×2 (11:28→17:45)
--- NOTE | 2017-10-06 17:09 | PDOC PROGRESS REPORT ---
Subjective Progress Note for:: 10/06/17 Subjective:: ANOOP JHAVERI is a 77-year-old Croatian-speaking only female with a past medical history of diabetes, osteoarthritis, atrial fibrillation who was admitted on 10/02 with AFIB w/RVR. The patient is seen on rounds with the use of translating services. She is sitting on the edge of the bed and tells me that she is feeling well today. The patient denies palpitations or shortness of breath upon ambulation however her heart rate still becomes elevated to the 130s when out of bed. Cardiology has been notified. Reason For Visit: CONGESTIVE HEART FAILURE,ATRIAL FIBRILLATION WITH Physical Exam Vital Signs: Temp Pulse Resp BP Pulse Ox 98.7 F 56 L 18 105/74 97 10/06/17 15:21 10/06/17 15:21 10/06/17 15:21 10/06/17 15:21 10/06/17 15:21 Intake & Output 10/05/17 10/06/17 10/07/17 06:59 06:59 06:59 Intake Total 1580 1120 300 Balance 1580 1120 300 Weight 99.2 kg 99.6 kg General appearance: PRESENT: no acute distress Head exam: PRESENT: atraumatic Eye exam: PRESENT: conjunctiva pink Neck exam: PRESENT: full ROM Respiratory exam: PRESENT: clear to auscultation sveta Cardiovascular exam: PRESENT: +S1, +S2 Pulses: PRESENT: normal radial pulses Vascular exam: PRESENT: normal capillary refill Rectal exam: PRESENT: deferred Extremities exam: PRESENT: full ROM, +1 edema Musculoskeletal exam: PRESENT: ambulatory Neurological exam: PRESENT: alert, altered, awake, oriented to person, oriented to place, oriented to time, oriented to situation Skin exam: PRESENT: normal color Results Laboratory Results: 10/04/17 04:26 10/05/17 04:37 10/02/17 10/02/17 10/02/17 09:55 15:40 21:45 Creatine Kinase CK-MB (CK-2) Troponin I 0.030 0.031 0.026 10/03/17 10/03/17 04:19 04:19 Creatine Kinase 44 CK-MB (CK-2) 1.13 Troponin I Impressions: Chest X-Ray 10/03/17 00:00 IMPRESSION: CARDIAC ENLARGEMENT. VASCULAR CONGESTION. NO CHANGE. Status: Imported from PACS Assessment & Plan - Diagnosis (1) Atrial fibrillation with RVR Is this a current diagnosis for this admission?: Yes Plan: The patient's heart rate ranges from 80-95, however she has frequent episodes where her heart rate will jump to 130 while ambulating. The patient denies chest pain or palpitations even when ambulating. Continue cardiac telemetry. Increased Cardizem to 180 mg Q12hrs but rate control still not achieved, Packaging Sales Representative recommends adding low dose metoprolol. Will attempt 12.5 mg metoprolol p.o. and reevaluate heart rate. Continue patient's home dose Eliquis. (2) CHF (congestive heart failure) Qualifiers: Heart failure type: unspecified Heart failure chronicity: acute on chronic Qualified Code(s): I50.9 - Heart failure, unspecified Is this a current diagnosis for this admission?: Yes Plan: The patient was noted to have pulmonary edema with small pleural effusions on chest x-ray. ProBNP was elevated to 663. ECHOcardiogram shows LVEF 45%, mild concentric left ventricular hypertrophy, grade II/IV mild to moderate diastolic dysfunction. Cardiac diet and daily weights. Continue diuresis with IV Lasix, change to PO tomorrow (3) Bronchitis Is this a current diagnosis for this admission?: Yes Plan: Improved. No audible wheezing or productive cough. Currently on doxycycline day 3, will stop at day 5 if patient appears non-toxic (4) Diabetes Qualifiers: Diabetes mellitus type: type 2 Is this a current diagnosis for this admission?: Yes Plan: Continue carb consistent diet. Continue sliding scale insulin. Restarted oral glycemic medications (metformin) but blood glucose is still not well controlled. (5) HTN (hypertension) Qualifiers: Hypertension type: essential hypertension Qualified Code(s): I10 - Essential (primary) hypertension Is this a current diagnosis for this admission?: Yes Plan: Blood pressure is currently well controlled. Continue cardiac diet. Cardizem and metoprolol for heart rate control, monitor for HYPOtension since her dose has been increased today (6) Sciatica, right side Is this a current diagnosis for this admission?: Yes Plan: Patient denies sciatica pain today. She is currently on her home medications gabapentin and Cymbalta. As needed oxycodone for acute flare. Heating pad is ordered, encourage mobility - Time Time Spent with patient: 15-24 minutes Medications reviewed and adjusted accordingly: Yes Anticipated discharge: Home - Inpatient Certification Based on my medical assessment, after consideration of the patient's comorbidities, presenting symptoms, or acuity I expect that the services needed warrant INPATIENT care.: Yes I certify that my determination is in accordance with my understanding of Medicare's requirements for reasonable and necessary INPATIENT services [42 CFR 412.3e].: Yes Medical Necessity: Risk of Complication if Not Cared For in Hospital - Plan Summary Plan Summary: Ultimately, the plan is to discharge the patient home with 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
[2017-10-06] MEDS: METOPROLOL SUCCINATE 25 MG TAB.SR.24H PO SCH (17:39)
--- NOTE | 2017-10-06 20:04 | PDOC CONSULTATION ---
Consultation Consult Date: 10/06/17 Attending physician:: BRANDY CROW Consult reason:: Atrial fibrillation with rapid ventricular response History of Present Illness Admission Date/PCP: 10/02/17 04:19 Patient complains of: Shortness of breath History of Present Illness: ANOOP JHAVERI is a 77 year old [place]occan-speaking only female with a past medical history of diabetes, osteoarthritis and atrial fibrillation who is visiting from [place]. Patient presents with 12 hours of palpitations and shortness of breath denying chest pain nausea vomiting. In the emergency room she is found to have uncontrolled A. fib with RVR in the 140s with a chest x- ray with mild pulmonary edema but otherwise unremarkable workup. Evaluation of her medications bottles suggest she may have missed up to 2 weeks of Cardizem. That said she is treated with oxygen IV Lasix and diltiazem and referred to the hospitalist for admission. This history was reviewed and confirmed. Patient could not add much to this history. There is some communication barrier. Past Medical History Cardiac Medical History: Reports: Atrial Fibrillation, Hypertension Psychiatric Medical History: Denies: Depression Social History Information Source: Patient Lives with: Family Smoking Status: Never Smoker Frequency of Alcohol Use: None Drugs: None Hx Prescription Drug Abuse: No - Advance Directive Resuscitation Status: Full Code Surrogate healthcare decision maker:: Patient's daughter and son-in-law are surrogate decision-maker Family History Family History: DM, Hypertension Parental Family History Reviewed: Yes Children Family History Reviewed: Yes Sibling(s) Family History Reviewed.: Yes Medication/Allergy Home Medications: Apixaban [Eliquis] 1 tab PO BID 10/02/17 Cilostazol [Cilostazol] 1 tab PO BID 10/02/17 Diltiazem HCl [Cartia Xt] 1 cap PO DAILY 10/02/17 Duloxetine HCl [Duloxetine HCl] 1 cap PO DAILY 10/02/17 Gabapentin [Gabapentin] 1 cap PO DAILY 10/02/17 Glipizide [Glipizide] 1 tab PO DAILY 10/02/17 Losartan Potassium [Losartan Potassium] 1 tab PO DAILY 10/02/17 Metformin HCl [Metformin HCl] 1 tab PO BID 10/02/17 Omeprazole [Omeprazole] 1 cap PO BID 10/02/17 Pravastatin Sodium [Pravastatin Sodium] 1 tab PO DAILY 10/02/17 Spironolactone [Spironolactone] 1 tab PO DAILY 10/02/17 Allergies/Adverse Reactions: acetaminophen [From Tylenol] Allergy (Verified 10/02/17 03:15) Penicillins Allergy (Verified 10/02/17 03:15) adhesive tape Adverse Reaction (Verified 10/02/17 03:15) Review of Systems ROS unobtainable: Other - Somewhat limited because of language barrier. Physical Exam Vital Signs: Temp Pulse Resp BP Pulse Ox 98.7 F 56 L 18 105/74 97 10/06/17 15:21 10/06/17 15:21 10/06/17 15:21 10/06/17 15:21 10/06/17 15:21 Intake & Output 10/05/17 10/06/17 10/07/17 06:59 06:59 06:59 Intake Total 1580 1120 1020 Balance 1580 1120 1020 Weight 99.2 kg 99.6 kg Exam: GENERAL: well-nourished and in no acute distress. Alert and oriented x3 HEAD: Atraumatic, normocephalic. EYES: Pupils equal round and reactive to light, extraocular movements intact, sclera anicteric, conjunctiva are normal. ENT: TMs normal, nares patent, oropharynx clear without exudates. Moist mucous membranes. No oral ulcerations or bleeding gums noted NECK: supple without lymphadenopathy. Trachea is central. No cervical or axillary lymphadenopathy noted. Carotids are 2+, JVD WNL LUNGS: Respiration seems nonlabored, no significant accessory muscle action noted. Breath sounds clear to auscultation bilaterally and equal noted. No wheezes rales or rhonchi noted. No significant dullness noted on percussion. CHEST: Palpation of the chest wall shows no significant chest wall tenderness. No other significant abnormalities noted. 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 ABDOMEN: Soft, no significant tenderness appreciated, normoactive bowel sounds. No guarding, no rebound. No rigidity noted . No masses appreciated. EXTREMITIES: Pedal pulses are 1-2+, no calf tenderness noted. No clubbing or cyanosis.trace to 1+ pedal edema noted NEUROLOGICAL: Focused neurological exam showed no significant neurologic deficit. Normal speech, no focal weakness appreciated. PSYCH: Normal mood, normal affect. Judgment and insight within normal limits. SKIN: No significant ecchymosis, skin is noted to be warm. MUSCULOSKELETAL EXAM: No significant acute joint swelling noted. Results Laboratory Results: 10/04/17 04:26 10/05/17 04:37 10/02/17 10/02/17 10/02/17 09:55 15:40 21:45 Creatine Kinase CK-MB (CK-2) Troponin I 0.030 0.031 0.026 10/03/17 10/03/17 04:19 04:19 Creatine Kinase 44 CK-MB (CK-2) 1.13 Troponin I EKG Comments: Atrial fibrillation with rapid ventricular response. No acute ST-T wave changes noted. Impressions: Chest X-Ray 10/03/17 00:00 IMPRESSION: CARDIAC ENLARGEMENT. VASCULAR CONGESTION. NO CHANGE. Assessment & Plan - Diagnosis (1) Atrial fibrillation with RVR Is this a current diagnosis for this admission?: Yes (2) Bronchitis Is this a current diagnosis for this admission?: Yes (3) CHF (congestive heart failure) Qualifiers: Heart failure type: unspecified Heart failure chronicity: acute on chronic Qualified Code(s): I50.9 - Heart failure, unspecified Is this a current diagnosis for this admission?: Yes (4) Diabetes Qualifiers: Diabetes mellitus type: type 2 Is this a current diagnosis for this admission?: Yes (5) HTN (hypertension) Qualifiers: Hypertension type: essential hypertension Qualified Code(s): I10 - Essential (primary) hypertension Is this a current diagnosis for this admission?: Yes (6) Dyspnea Qualifiers: Dyspnea type: dyspnea on exertion Qualified Code(s): R06.09 - Other forms of dyspnea Is this a current diagnosis for this admission?: Yes - Notes Notes: 2D echo results reviewed. Will schedule patient for a nuclear stress test. Have recommended that beta-blockers be added to patient's regimen in view of systolic dysfunction. Atrial fibrillation atrial fibrillation with rapid ventricular response: Continue with Cardizem, add small dose of beta-milagros. May consider switching over to beta-milagros completely since LVEF was noted to be depressed. CHF: Initial chest x-ray clearly reveals CHF. Most likely related to systolic and diastolic dysfunction. Dyspnea: Possibly angina equivalent symptom. Will schedule patient for a nuclear stress test. Hypertension: Reasonably well controlled. Blood pressure goal in this patient is 135/85 or less. This was discussed with the patient. Currently blood pressure under reasonable control. Better medication for this patient are JENNY inhibitor/ARB/beta milagros etc. discussed side effects of uncontrolled hypertension and also severe hypotension. Diabetes: Recommend good control of blood sugar. However should avoid any hypoglycemia and hyperglycemia. Patient being expertly managed by primary care M.D/hospitalist Bronchitis: Continue antibiotic therapy. It may be worthwhile to consider a cardiac CTA to rule out chronic thromboembolic disease. Will schedule this in a.m. because of language problems. - Time Time Spent: 30 to 50 Minutes - CODE STATUS was discussed, patient remains full code. Surrogate decision-maker unchanged. Multiple medical problems were addressed. More than 50% of the time spent coordinating care, discussing management plans with involved caregivers. Management plans discussed with involved personnels. Medical decision making was of moderate to high complexity , patient's has multiple comorbidities. Medications reviewed and adjusted accordingly: Yes
--- NOTE | 2017-10-06 22:18 | EKG REPORT ---
SEVERITY:- ABNORMAL ECG - ATRIAL FIBRILLATION BORDERLINE INFERIOR Q WAVES NONSPECIFIC T ABNORMALITIES, ANT-LAT LEADS : Confirmed by: Guevara Mejia 06-Oct-2017 22:17:41
[2017-10-07] MEDS: IPRATROPIUM/ALBUTEROL 0.5-2.5 MG/3 ML AMPUL NEB SCH ×4 (01:39→19:29)
--- NOTE | 2017-10-07 10:36 | EKG REPORT ---
SEVERITY:- ABNORMAL ECG - ATRIAL FIBRILLATION BORDERLINE INFERIOR Q WAVES BORDERLINE T WAVE ABNORMALITIES : Confirmed by: Guevara Mejia 07-Oct-2017 10:35:38
[2017-10-07] MEDS: GABAPENTIN 300 MG CAPSULE PO SCH (11:50)
[2017-10-07] MEDS: DULOXETINE HCL 30 MG CAPSULE.DR PO SCH (11:50)
[2017-10-07] MEDS: APIXABAN 5 MG TABLET PO SCH ×2 (11:51→22:05)
[2017-10-07] MEDS: METFORMIN HCL 500 MG TABLET PO SCH ×2 (11:51→17:32)
[2017-10-07] MEDS: CILOSTAZOL 100 MG TABLET PO SCH ×2 (11:52→17:30)
[2017-10-07] MEDS: DOXYCYCLINE HYCLATE 100 MG TABLET PO SCH ×2 (11:52→22:06)
[2017-10-07] MEDS: DILTIAZEM HCL 180 MG CAPSULE.CR PO SCH ×2 (11:53→22:05)
[2017-10-07] MEDS: SPIRONOLACTONE 25 MG TABLET PO SCH (11:53)
[2017-10-07] MEDS: FUROSEMIDE INJ/PF 20 MG/2 ML SDV IV SCH (11:54)
[2017-10-07] MEDS: DOCUSATE SODIUM 100 MG CAPSULE PO SCH ×2 (11:54→17:41)
[2017-10-07] MEDS: METOPROLOL SUCCINATE 25 MG TAB.SR.24H PO SCH ×2 (17:31→22:05)
[2017-10-07] MEDS: INSULIN LISPRO 100 UNIT/ML 3 ML VIAL SUBCUT PRN ×2 (17:32→22:04)
--- NOTE | 2017-10-07 19:56 | PDOC PROGRESS REPORT ---
Subjective Progress Note for:: 10/07/17 Subjective:: a fib rvr Patient noted to have no new complaints. She still has shortness of breath on mild exertion. Patient remains in atrial fibrillation. A CT scan was ordered with contrast to rule out recurrent pulmonary emboli but has not yet been performed. Reason For Visit: CONGESTIVE HEART FAILURE,ATRIAL FIBRILLATION WITH Physical Exam Vital Signs: Temp Pulse Resp BP Pulse Ox 97.9 F 105 H 18 113/81 96 10/07/17 07:28 10/07/17 08:26 10/07/17 08:26 10/07/17 07:28 10/07/17 08:26 Intake & Output 10/06/17 10/07/17 10/08/17 06:59 06:59 06:59 Intake Total 1120 1020 Balance 1120 1020 Weight 99.6 kg 98.6 kg Exam: GENERAL: well-nourished and in no acute distress. Alert and oriented x3 HEAD: Atraumatic, normocephalic. EYES: Pupils equal round and reactive to light, extraocular movements intact, sclera anicteric, conjunctiva are normal. ENT: TMs normal, nares patent, oropharynx clear without exudates. Moist mucous membranes. No oral ulcerations or bleeding gums noted NECK: supple without lymphadenopathy. Trachea is central. No cervical or axillary lymphadenopathy noted. Carotids are 2+, JVD WNL LUNGS: Respiration seems nonlabored, no significant accessory muscle action noted. Bibasilar fine crackles and few a scattered wheezes rales or rhonchi noted. No significant dullness noted on percussion. CHEST: Palpation of the chest wall shows no significant chest wall tenderness. No other significant abnormalities noted. 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 ABDOMEN: Soft, no significant tenderness appreciated, normoactive bowel sounds. No guarding, no rebound. No rigidity noted . No masses appreciated. EXTREMITIES: Pedal pulses are 1-2+, no calf tenderness noted. No clubbing or cyanosis. 1+ pedal edema noted NEUROLOGICAL: Focused neurological exam showed no significant neurologic deficit. Normal speech, no focal weakness appreciated. PSYCH: Normal mood, normal affect. Judgment and insight within normal limits. SKIN: No significant ecchymosis, skin is noted to be warm. MUSCULOSKELETAL EXAM: No significant acute joint swelling noted. Results Laboratory Results: 10/04/17 04:26 10/05/17 04:37 10/02/17 10/02/17 10/02/17 09:55 15:40 21:45 Creatine Kinase CK-MB (CK-2) Troponin I 0.030 0.031 0.026 10/03/17 10/03/17 04:19 04:19 Creatine Kinase 44 CK-MB (CK-2) 1.13 Troponin I EKG Comments: Atrial fibrillation with intermittent high ventricular response especially on exertion. Impressions: Chest X-Ray 10/03/17 00:00 IMPRESSION: CARDIAC ENLARGEMENT. VASCULAR CONGESTION. NO CHANGE. Assessment & Plan - Diagnosis (1) Atrial fibrillation with RVR Is this a current diagnosis for this admission?: Yes (2) Bronchitis Is this a current diagnosis for this admission?: Yes (3) CHF (congestive heart failure) Qualifiers: Heart failure type: unspecified Heart failure chronicity: acute on chronic Qualified Code(s): I50.9 - Heart failure, unspecified Is this a current diagnosis for this admission?: Yes (4) Diabetes Qualifiers: Diabetes mellitus type: type 2 Is this a current diagnosis for this admission?: Yes (5) HTN (hypertension) Qualifiers: Hypertension type: essential hypertension Qualified Code(s): I10 - Essential (primary) hypertension Is this a current diagnosis for this admission?: Yes (6) Dyspnea Qualifiers: Dyspnea type: dyspnea on exertion Qualified Code(s): R06.09 - Other forms of dyspnea Is this a current diagnosis for this admission?: Yes - Notes Notes: Atrial fibrillation atrial fibrillation with rapid ventricular response: Continue with Cardizem, added small dose of beta-milagros. May consider switching over to beta-milagros completely since LVEF was noted to be depressed. Will gradually escalate beta-milagros dose. CHF: Initial chest x-ray clearly reveals CHF. Most likely related to systolic and diastolic dysfunction. Continue baseline diuretic therapy. Dyspnea: Possibly angina equivalent symptom. Will schedule patient for a nuclear stress test. Hypertension: Reasonably well controlled. Blood pressure goal in this patient is 135/85 or less. This was discussed with the patient. Currently blood pressure under reasonable control. Better medication for this patient are JENNY inhibitor/ARB/beta milagros etc. discussed side effects of uncontrolled hypertension and also severe hypotension. Diabetes: Recommend good control of blood sugar. However should avoid any hypoglycemia and hyperglycemia. Patient being expertly managed by primary care M.D/hospitalist Bronchitis: Continue antibiotic therapy. CTA of the chest is still pending. - Time Time with patient: Greater than 35 minutes - 2D echo results discussed. Management plans discussed. Medications reviewed and adjusted accordingly: Yes
[2017-10-08] MEDS: IPRATROPIUM/ALBUTEROL 0.5-2.5 MG/3 ML AMPUL NEB SCH ×4 (01:46→19:36)
--- NOTE | 2017-10-08 12:01 | PDOC PROGRESS REPORT ---
Subjective Progress Note for:: 10/08/17 Subjective:: Patient today seen in the morning for stress test. Patient had no significant complaints. Patient noted to have no new complaints. She still has shortness of breath on mild exertion. Patient remains in atrial fibrillation. A CT scan was ordered with contrast to rule out recurrent pulmonary emboli but has not yet been performed. Reason For Visit: CONGESTIVE HEART FAILURE,ATRIAL FIBRILLATION WITH Physical Exam Vital Signs: Temp Pulse Resp BP Pulse Ox 98.0 F 77 16 108/81 95 10/08/17 07:54 10/08/17 08:48 10/08/17 08:48 10/08/17 07:54 10/08/17 08:48 Intake & Output 10/07/17 10/08/17 10/09/17 06:59 06:59 06:59 Intake Total 1020 1059 Output Total 0 Balance 1020 1059 Weight 98.6 kg 98 kg Exam: GENERAL: well-nourished and in no acute distress. Alert and oriented x3 HEAD: Atraumatic, normocephalic. EYES: Pupils equal round and reactive to light, extraocular movements intact, sclera anicteric, conjunctiva are normal. ENT: TMs normal, nares patent, oropharynx clear without exudates. Moist mucous membranes. No oral ulcerations or bleeding gums noted NECK: supple without lymphadenopathy. Trachea is central. No cervical or axillary lymphadenopathy noted. Carotids are 2+, JVD WNL LUNGS: Respiration seems nonlabored, no significant accessory muscle action noted. Breath sounds clear to auscultation bilaterally and equal noted. No wheezes rales or rhonchi noted. No significant dullness noted on percussion. CHEST: Palpation of the chest wall shows no significant chest wall tenderness. No other significant abnormalities noted. 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 ABDOMEN: Soft, no significant tenderness appreciated, normoactive bowel sounds. No guarding, no rebound. No rigidity noted . No masses appreciated. EXTREMITIES: Pedal pulses are 1-2+, no calf tenderness noted. No clubbing or cyanosis.trace to 1+ pedal edema noted NEUROLOGICAL: Focused neurological exam showed no significant neurologic deficit. Normal speech, no focal weakness appreciated. PSYCH: Normal mood, normal affect. Judgment and insight within normal limits. SKIN: No significant ecchymosis, skin is noted to be warm. MUSCULOSKELETAL EXAM: No significant acute joint swelling noted. Results Laboratory Results: 10/04/17 04:26 10/05/17 04:37 10/02/17 18:40 Blood Blood Culture - Final NO GROWTH IN 5 DAYS 10/02/17 18:25 Blood Blood Culture - Final NO GROWTH IN 5 DAYS 10/02/17 10/02/17 10/02/17 09:55 15:40 21:45 Creatine Kinase CK-MB (CK-2) Troponin I 0.030 0.031 0.026 10/03/17 10/03/17 04:19 04:19 Creatine Kinase 44 CK-MB (CK-2) 1.13 Troponin I Impressions: Chest X-Ray 10/03/17 00:00 IMPRESSION: CARDIAC ENLARGEMENT. VASCULAR CONGESTION. NO CHANGE. Assessment & Plan - Diagnosis (1) Atrial fibrillation with RVR Is this a current diagnosis for this admission?: Yes (2) Bronchitis Is this a current diagnosis for this admission?: Yes (3) CHF (congestive heart failure) Qualifiers: Heart failure type: unspecified Heart failure chronicity: acute on chronic Qualified Code(s): I50.9 - Heart failure, unspecified Is this a current diagnosis for this admission?: Yes (4) Diabetes Qualifiers: Diabetes mellitus type: type 2 Is this a current diagnosis for this admission?: Yes (5) HTN (hypertension) Qualifiers: Hypertension type: essential hypertension Qualified Code(s): I10 - Essential (primary) hypertension Is this a current diagnosis for this admission?: Yes (6) Dyspnea Qualifiers: Dyspnea type: dyspnea on exertion Qualified Code(s): R06.09 - Other forms of dyspnea Is this a current diagnosis for this admission?: Yes - Notes Notes: Atrial fibrillation atrial fibrillation with rapid ventricular response: Continue with Cardizem, added small dose of beta-milagros. May consider switching over to beta-milagros completely since LVEF was noted to be depressed. Will gradually escalate beta-milagros dose. CHF: Initial chest x-ray clearly reveals CHF. Most likely related to systolic and diastolic dysfunction. Continue baseline diuretic therapy. Dyspnea: Possibly angina equivalent symptom. Nuclear stress test was performed today. Results are pending at the time of dictation. Hypertension: Reasonably well controlled. Blood pressure goal in this patient is 135/85 or less. This was discussed with the patient. Currently blood pressure under reasonable control. Better medication for this patient are JENNY inhibitor/ARB/beta milagros etc. discussed side effects of uncontrolled hypertension and also severe hypotension. Diabetes: Recommend good control of blood sugar. However should avoid any hypoglycemia and hyperglycemia. Patient being expertly managed by primary care M.D/hospitalist Bronchitis: Continue antibiotic therapy. CTA of the chest is still pending. Will recommend that this be done prior to discharge. - Time Time with patient: Greater than 35 minutes - CODE STATUS was discussed, patient remains full code. Surrogate decision-maker unchanged. Multiple medical problems were addressed. More than 50% of the time spent coordinating care, discussing management plans with involved caregivers. Management plans discussed with involved personnels. Medical decision making was of moderate to high complexity, patient's has multiple comorbidities. Medications reviewed and adjusted accordingly: Yes
[2017-10-08] MEDS: APIXABAN 5 MG TABLET PO SCH ×2 (12:47→22:55)
[2017-10-08] MEDS: DOXYCYCLINE HYCLATE 100 MG TABLET PO SCH (12:48)
[2017-10-08] MEDS: DILTIAZEM HCL 180 MG CAPSULE.CR PO SCH (12:48)
[2017-10-08] MEDS: METFORMIN HCL 500 MG TABLET PO SCH ×2 (12:48→17:20)
[2017-10-08] MEDS: METOPROLOL SUCCINATE 25 MG TAB.SR.24H PO SCH ×2 (12:48→22:54)
[2017-10-08] MEDS: DOCUSATE SODIUM 100 MG CAPSULE PO SCH ×2 (12:49→17:20)
[2017-10-08] MEDS: GABAPENTIN 300 MG CAPSULE PO SCH (12:49)
[2017-10-08] MEDS: SPIRONOLACTONE 25 MG TABLET PO SCH (12:49)
[2017-10-08] MEDS: DULOXETINE HCL 30 MG CAPSULE.DR PO SCH (12:49)
[2017-10-08] MEDS: FUROSEMIDE INJ/PF 40 MG/4 ML SDV IV SCH (12:50)
[2017-10-08] MEDS: CILOSTAZOL 100 MG TABLET PO SCH (12:57)
--- NOTE | 2017-10-08 12:59 | RADIOLOGY REPORT (SQ) ---
EXAM DESCRIPTION: CTA CHEST COMPLETED DATE/TIME: 10/08/2017 12:35 pm REASON FOR STUDY: dyspnea COMPARISON: None. TECHNIQUE: CT scan of the chest performed using helical scanning technique with dynamic intravenous contrast injection. Images reviewed with lung, soft tissue and bone windows. Reconstructed coronal and sagittal MPR images reviewed. Additional 3 dimensional post-processing performed to develop Maximal Intensity Projection images ([place] P). All images stored on PACS. All CT scanners at this facility use dose modulation, iterative reconstruction, and/or weight based d osing when appropriate to reduce radiation dose to as low as reasonably achievable (ALARA). [facility]: Dose Right [facility]: CareDose [facility]: Dose Right [facility]: Teradose 4D [facility]: Genius Digital CONTRAST TYPE AND DOSE: contrast/concentration: Isovue 370.00 mg/ml; Total Contrast Delivered: 74.0 ml; Total Saline Delivered: 110.0 ml Contrast bolus optimized for the pulmonary arteries. Not diagnostic for the aorta. RENAL FUNCTION: GFR > 60. RADIATION DOSE: CT Rad equipment meets quality standard of care and radiation dose reduction techniq ues were employed. CTDIvol: 15.5 - 33.8 mGy. DLP: 555 mGy-cm. . LIMITATIONS: Patient motion. FINDINGS: LUNGS AND PLEURA: No masses, infiltrates, pneumothorax. No pleural effusions, calcificati ons. AORTA AND GREAT VESSELS: No aneurysm. Contrast bolus not optimized for the aorta. HEART: No pericardial effusion. Cardiomegaly. PULMONARY ARTERIES: No emboli visualized in the main pulmonary arteries or the segmental branches. HILAR AND MEDIASTINAL STRUCTURES: No identified masses or abnormal nodes. HARDWARE: None in the chest. UPPER ABDOMEN: No significant findings. Limited exam. THYROID AND OTHER SOFT TISSUES: No masses. No adenopathy. BONES: No acute or significant finding. 3D MIPS: Confirm above findings. OTHER: No other significant finding. IMPRESSION: No PE. No acute findings. COMMENT: Quality ID # [id number]: Final reports with documentation of one or more dose reduction techniques (e.g., Automated exposure control, adjustment of the mA and/or kV according to patient size, use of iterative reconstruction technique) TECHNICAL DOCUMENTATION: JOB ID: [id number] [employer]- All Rights Reserved Reading location - IP/workstation name: [email or web address]
--- NOTE | 2017-10-08 13:52 | DRAGON STRESS TEST REPORT ---
INTRAVENOUS LEXISCAN CARDIOLITE STRESS TEST USING SINGLE PHOTON EMMISION COMPUTERIZED TOMOGRAPHIC. DATE OF PROCEDURE: October 08, 2017, INDICATION : Congestive heart failure, atrial fibrillation, dyspnea CARDIAC RISK FACTORS: Diabetes, hypertension, cardiomyopathy. RESTING EKG: Atrial fibrillation, LVH with minor nonspecific ST-T wave changes STRESS EKG: No significant changes noted with LexiScan bolus REASON FOR TERMINATION: Protocol. PROCEDURE REPORT: Baseline heart rate 72 beats per minute with blood pressure of 103/77. Patient had no significant complaints. Heart rate at 2 minutes post bolus 80 with a blood pressure of 117/70. 3 minutes post bolus heart rate 74 with blood pressure of 110/73. No significant EKG changes were noted. Patient had no significant complaints during the procedure or postprocedure. Patient injected with Aminophyllin 75 mg at 3 minutes or later after Lexiscan bolus. CONCLUSIONS: Normal EKG and hemodynamic response to IV LexiScan. NUCLEAR DATA: At rest the patient was given 13.81 millicuries of technetium 99 sestamibi injected intravenously. As per protocol rest gated SPECT images were obtained. On day of stress test, the patient was given intravenous LexiScan at a dose of 0.4 mg in 5 mL intravenously, followed by flush with normal saline. Subsequently the stress dose of 39.8 millicuries of technetium 99 sestamibi was injected intravenously. As per protocol stress gated images were obtained. NUCLEAR INTERPRETATION: Both raw and processed data were used for interpretation. Visual, qualitative, computer-generated quantitative data was used. There was good myocardial uptake of technetium compound. Motion artifact and soft tissue attenuations were noted. Increased visceral uptake was noted. Significant breast attenuation noted. Significant visceral contamination also noted. There was mild decreased uptake in the mid anterior wall felt mostly related to differences in breast attenuation artifact. Mild decreased uptake also noted in the inferior wall especially and stress images. This could be consistent with probable mild ischemia but could well be from differences in attenuation artifact. Overall confidence in the stress test is slow. EKG gated imaging showed LV EF at 21 %, rest and stress gated EF similar visually. T. I D. ratio was 1.07. Lung heart ratio noted to be within normal limits 0.38. No significant extracardiac and abnormal radiotracer activities were noted. RV free wall uptake was noted to be WNL. IMPRESSION: Also refer to comments under nuclear interpretation. Also test results needs to be interpreted in the context of pretest probability. 1. There was mild decreased uptake in the mid anterior wall felt mostly related to differences in breast attenuation artifact. Mild decreased uptake also noted in the inferior wall especially in stress images. This could be consistent with probable mild ischemia but could well be from differences in attenuation artifact. Overall confidence in the stress test is slow. 2. There is no definitive scintigraphic evidence of myocardial infarction/ scar. Picture consistent with cardiomyopathy. 3. EKG gated imaging shows left ventricular ejection fraction of approx. 21 %. 4. Clinical correlation requested as occasionally single vessel disease or balanced ischemia could be missed. In approximately 10% of the cases Lexiscan may not cause adequate vasodilatory stress. RECOMMENDATIONS: Aggressive risk factor modification and medical management. Further evaluation may be needed if continued symptoms or other high risk indicators are noted on clinical evaluation. Low threshold for heart catheterization if significant symptoms. Close cardiology follow-up is also recommended. Clinical correlation with echocardiogram derived ejection fraction. Inability to exercise by itself can lead to increased cardiovascular event risks. Consider cardiology consultation and or follow-up if clinically indicated. I am available for cardiology evaluation and consultation if requested by the presetter operator, unless patient already has a psychology department chair. CYNDI
[2017-10-08] MEDS ORDERED: REGADENOSON INJ 0.4 MG/5 ML DISP.SYRIN IV ONE ×2 (14:15→14:29)
[2017-10-08] MEDS ORDERED: AMINOPHYLLINE INJ/PF 250 MG/10 ML SDV IV ONE ×2 (14:15→14:29)
[2017-10-08] MEDS ORDERED: DIGOXIN 0.125 MG TABLET PO ONE (15:00)
--- NOTE | 2017-10-08 16:58 | PDOC PROGRESS REPORT ---
Subjective Progress Note for:: 10/08/17 Subjective:: ANOOP JHAVERI is a 77-year-old Israeli-speaking only female with a past medical history of diabetes, osteoarthritis, atrial fibrillation who was admitted on 10/02 with AFIB w/RVR. The patient is seen on rounds with the use of translating services. She is sitting on the edge of the bed and tells me that she is feeling well today. She denies chest pain or shortness of breath. She states that she is able to ambulate in the hallways without difficulty. The patient's stress test was completed today. Dr. Mejia adjusted the patient's antiarrhythmic medications in hopes of gaining better rate control of her AFIB. The plan is to keep the patient in the hospital for 24-48 hours to monitor her heart rate. Barring any complications, the patient will be discharged before Wednesday. Reason For Visit: CONGESTIVE HEART FAILURE,ATRIAL FIBRILLATION WITH Physical Exam Vital Signs: Temp Pulse Resp BP Pulse Ox 97.6 F 77 16 115/79 96 10/08/17 15:37 10/08/17 15:37 10/08/17 15:37 10/08/17 15:37 10/08/17 15:37 Intake & Output 10/07/17 10/08/17 10/09/17 06:59 06:59 06:59 Intake Total 1020 1059 318 Output Total 0 Balance 1020 1059 318 Weight 98.6 kg 98 kg General appearance: PRESENT: no acute distress Head exam: PRESENT: atraumatic Eye exam: PRESENT: conjunctiva pink Mouth exam: PRESENT: moist Neck exam: PRESENT: full ROM Respiratory exam: PRESENT: clear to auscultation sveta Cardiovascular exam: PRESENT: +S1, +S2 Pulses: PRESENT: normal radial pulses, +1 pedal pulses bilateral GI/Abdominal exam: PRESENT: normal bowel sounds, soft Rectal exam: PRESENT: deferred Extremities exam: PRESENT: full ROM Musculoskeletal exam: PRESENT: full ROM Neurological exam: PRESENT: alert, altered, awake, oriented to person, oriented to place, oriented to time, oriented to situation Psychiatric exam: PRESENT: appropriate affect Skin exam: PRESENT: normal color Results Laboratory Results: 10/04/17 04:26 10/05/17 04:37 10/02/17 18:40 Blood Blood Culture - Final NO GROWTH IN 5 DAYS 10/02/17 18:25 Blood Blood Culture - Final NO GROWTH IN 5 DAYS 10/02/17 10/02/17 10/02/17 09:55 15:40 21:45 Creatine Kinase CK-MB (CK-2) Troponin I 0.030 0.031 0.026 10/03/17 10/03/17 04:19 04:19 Creatine Kinase 44 CK-MB (CK-2) 1.13 Troponin I Impressions: Chest X-Ray 10/03/17 00:00 IMPRESSION: CARDIAC ENLARGEMENT. VASCULAR CONGESTION. NO CHANGE. Chest/Abdomen CTA 10/08/17 09:00 IMPRESSION: No PE. No acute findings. Status: Imported from PACS Assessment & Plan - Diagnosis (1) Atrial fibrillation with RVR Is this a current diagnosis for this admission?: Yes Plan: Improved. The patient's heart rate ranges from 80-95 and has experienced better heart rate control since the addition of metoprolol to her regimen. Following the patient's stress test today, Dr. Mejia of cardiology discontinued the patient's Cardizem, and started her on digoxin and entresto. The patient denies chest pain or palpitations even when ambulating. Continue cardiac telemetry. Continue patient's home dose Eliquis. (2) CHF (congestive heart failure) Qualifiers: Heart failure type: unspecified Heart failure chronicity: acute on chronic Qualified Code(s): I50.9 - Heart failure, unspecified Is this a current diagnosis for this admission?: Yes Plan: The patient was noted to have pulmonary edema with small pleural effusions on chest x-ray. ProBNP was elevated to 663. ECHOcardiogram shows mild concentric left ventricular hypertrophy, grade II/IV mild to moderate diastolic dysfunction, and LVEF 45% - although EKG gated imaging from stress test shows LVEF at 21%. Additional results from the stress test to include, possible signs of mild ischemia in the mid anterior and inferior wall, although the overall confidence of the stress test was low. Cardiac diet and daily weights. Continue diuresis with IV Lasix, change to PO tomorrow. Radiologic Technology Program Director is aware that the patient doesn't live in [place], and she cannot be instructed to follow up with a physician in [place]. It has been determined that we will get her heart rate under control by altering her medication regimen, then continue to monitor her through the weekend. Barring any complications, she should be discharged before Wednesday. The importance of following up with her quill skinner in [place] has been stressed multiple times. The patient states understanding. (3) Bronchitis Is this a current diagnosis for this admission?: Yes Plan: Improved. No audible wheezing or productive cough. Patient completed course of doxycycline. (4) Diabetes Qualifiers: Diabetes mellitus type: type 2 Is this a current diagnosis for this admission?: Yes Plan: Continue carb consistent diet. Continue sliding scale insulin. Restarted home oral glycemic medications (metformin). (5) HTN (hypertension) Qualifiers: Hypertension type: essential hypertension Qualified Code(s): I10 - Essential (primary) hypertension Is this a current diagnosis for this admission?: Yes Plan: Blood pressure is currently well controlled. Continue cardiac diet. Radiologic Technology Program Director discontinued patient's cardizem, and switched her to Metoprolol, entresto, and digoxin. Monitor for HYPOtension since her regimen has been changed today (6) Sciatica, right side Is this a current diagnosis for this admission?: Yes Plan: Patient denies sciatica pain today. She is currently on her home medications gabapentin and Cymbalta. As needed oxycodone for acute flare. Heating pad is ordered, encourage mobility - Time Time Spent with patient: 15-24 minutes Medications reviewed and adjusted accordingly: Yes Anticipated discharge: Home Within: within 24 hours, within 48 hours - Inpatient Certification Based on my medical assessment, after consideration of the patient's comorbidities, presenting symptoms, or acuity I expect that the services needed warrant INPATIENT care.: Yes I certify that my determination is in accordance with my understanding of Medicare's requirements for reasonable and necessary INPATIENT services [42 CFR 412.3e].: Yes Medical Necessity: Risk of Complication if Not Cared For in Hospital - Plan Summary Plan Summary: Ultimately, the plan is to discharge patient home so she can return home to [place]
[2017-10-08 17:03] LABS: CHOLESTEROL 220.07 mg/dL (0-200); TRIGLYCERIDES 134 mg/dL (<150)
[2017-10-08 17:14] LABS: DIRECT LDL 133 mg/dL (<100)
[2017-10-08] MEDS ORDERED: ATORVASTATIN CALCIUM 40 MG TABLET PO SCH (22:00)
[2017-10-08] MEDS: SACUBITRIL/VALSARTAN 24 MG/26 MG TABLET PO SCH (22:55)
[2017-10-09] MEDS: IPRATROPIUM/ALBUTEROL 0.5-2.5 MG/3 ML AMPUL NEB SCH ×3 (02:02→14:23)
[2017-10-09 06:01] LABS: ALANINE AMINOTRANSFERASE 46 U/L (9-52); ALKALINE PHOSPHATASE 62 U/L (38-126); ANION GAP 11 (5-19); ASPARTATE AMINO TRANSFERASE 31 U/L (14-36); BILIRUBIN,DIRECT 0.4 mg/dL (0.0-0.4); BILIRUBIN,TOTAL 0.4 mg/dL (0.2-1.3); BLOOD UREA NITROGEN 19 mg/dL (7-20); CALCIUM 9.8 mg/dL (8.4-10.2); CARBON DIOXIDE 27 mmol/L (22-30); CHLORIDE 103 mmol/L (98-107); GLUCOSE 187 mg/dL (75-110); POTASSIUM 4.5 mmol/L (3.6-5.0); SODIUM 140.7 mmol/L (137-145); TOTAL PROTEIN 7.1 g/dL (6.3-8.2)
[2017-10-09] MEDS: METFORMIN HCL 500 MG TABLET PO SCH (08:23)
[2017-10-09] MEDS: GABAPENTIN 300 MG CAPSULE PO SCH (09:38)
[2017-10-09] MEDS: METOPROLOL SUCCINATE 25 MG TAB.SR.24H PO SCH (09:38)
[2017-10-09] MEDS: DULOXETINE HCL 30 MG CAPSULE.DR PO SCH (09:38)
[2017-10-09] MEDS: DOCUSATE SODIUM 100 MG CAPSULE PO SCH (09:39)
[2017-10-09] MEDS: SPIRONOLACTONE 25 MG TABLET PO SCH (09:39)
[2017-10-09] MEDS: APIXABAN 5 MG TABLET PO SCH (09:39)
[2017-10-09] MEDS: FUROSEMIDE INJ/PF 40 MG/4 ML SDV IV SCH (09:39)
[2017-10-09] MEDS: SACUBITRIL/VALSARTAN 24 MG/26 MG TABLET PO SCH (09:53)
[2017-10-09] MEDS ORDERED: DIGOXIN 0.125 MG TABLET PO SCH (10:00)
[2017-10-09] MEDS: INSULIN LISPRO 100 UNIT/ML 3 ML VIAL SUBCUT PRN (10:01)
--- NOTE | 2017-10-09 10:19 | EKG REPORT ---
SEVERITY:- ABNORMAL ECG - ATRIAL FIBRILLATION BORDERLINE INFERIOR Q WAVES : Confirmed by: Guevara Mejia 09-Oct-2017 10:18:33
--- NOTE | 2017-10-09 12:47 | PDOC PROGRESS REPORT ---
Subjective Progress Note for:: 10/09/17 Subjective:: Patient claims to be feeling fine. She is much better and has ambulated without any difficulty. Patient noted to have no new complaints. Telemetry strips shows persistent atrial fibrillation however with controlled ventricular response. She did complain of some nausea last night but no chest pains. Reason For Visit: CONGESTIVE HEART FAILURE,ATRIAL FIBRILLATION WITH Physical Exam Vital Signs: Temp Pulse Resp BP Pulse Ox 97.7 F 95 16 120/80 94 10/09/17 08:28 10/09/17 08:28 10/09/17 08:28 10/09/17 08:28 10/09/17 08:28 Intake & Output 10/08/17 10/09/17 10/10/17 06:59 06:59 07:59 Intake Total 1059 1244 Output Total 0 Balance 1059 1244 Weight 98 kg 98 kg Exam: GENERAL: well-nourished and in no acute distress. Alert and oriented x3 HEAD: Atraumatic, normocephalic. EYES: Pupils equal round and reactive to light, extraocular movements intact, sclera anicteric, conjunctiva are normal. ENT: TMs normal, nares patent, oropharynx clear without exudates. Moist mucous membranes. No oral ulcerations or bleeding gums noted NECK: supple without lymphadenopathy. Trachea is central. No cervical or axillary lymphadenopathy noted. Carotids are 2+, JVD WNL LUNGS: Respiration seems nonlabored, no significant accessory muscle action noted. Breath sounds clear to auscultation bilaterally and equal noted. No wheezes rales or rhonchi noted. No significant dullness noted on percussion. CHEST: Palpation of the chest wall shows no significant chest wall tenderness. No other significant abnormalities noted. 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 ABDOMEN: Soft, no significant tenderness appreciated, normoactive bowel sounds. No guarding, no rebound. No rigidity noted . No masses appreciated. EXTREMITIES: Pedal pulses are 1-2+, no calf tenderness noted. No clubbing or cyanosis.trace to 1+ pedal edema noted. NEUROLOGICAL: Focused neurological exam showed no significant neurologic deficit. Normal speech, no focal weakness appreciated. PSYCH: Normal mood, normal affect. Judgment and insight within normal limits. SKIN: No significant ecchymosis, skin is noted to be warm. MUSCULOSKELETAL EXAM: No significant acute joint swelling noted. Results Laboratory Results: 10/04/17 04:26 10/09/17 04:52 10/08/17 10/09/17 16:20 04:52 Sodium 140.7 Potassium 4.5 Chloride 103 Carbon Dioxide 27 Anion Gap 11 BUN 19 Creatinine 0.81 Est GFR ( Amer) > 60 Est GFR (Non-Af Amer) > 60 Glucose 187 H Calcium 9.8 Total Bilirubin 0.4 AST 31 ALT 46 Alkaline Phosphatase 62 Total Protein 7.1 Albumin 4.0 Triglycerides 134 Cholesterol 220.07 H LDL Cholesterol Direct 133 H VLDL Cholesterol 27.0 HDL Cholesterol 55 10/02/17 10/02/17 10/02/17 09:55 15:40 21:45 Creatine Kinase CK-MB (CK-2) Troponin I 0.030 0.031 0.026 NT-Pro-B Natriuret Pep 10/03/17 10/03/17 10/09/17 04:19 04:19 04:52 Creatine Kinase 44 CK-MB (CK-2) 1.13 Troponin I NT-Pro-B Natriuret Pep 844 H EKG Comments: Twelve-lead EKG obtained today shows atrial fibrillation, with heart rate of 78 , no acute ischemic signs noted. Impressions: Chest X-Ray 10/03/17 00:00 IMPRESSION: CARDIAC ENLARGEMENT. VASCULAR CONGESTION. NO CHANGE. Chest/Abdomen CTA 10/08/17 09:00 IMPRESSION: No PE. No acute findings. Assessment & Plan - Diagnosis (1) Atrial fibrillation with RVR Is this a current diagnosis for this admission?: Yes (2) Bronchitis Is this a current diagnosis for this admission?: Yes (3) CHF (congestive heart failure) Qualifiers: Heart failure type: unspecified Heart failure chronicity: acute on chronic Qualified Code(s): I50.9 - Heart failure, unspecified Is this a current diagnosis for this admission?: Yes (4) Diabetes Qualifiers: Diabetes mellitus type: type 2 Is this a current diagnosis for this admission?: Yes (5) HTN (hypertension) Qualifiers: Hypertension type: essential hypertension Qualified Code(s): I10 - Essential (primary) hypertension Is this a current diagnosis for this admission?: Yes (6) Dyspnea Qualifiers: Dyspnea type: dyspnea on exertion Qualified Code(s): R06.09 - Other forms of dyspnea Is this a current diagnosis for this admission?: Yes (7) CAD (coronary artery disease) Qualifiers: Coronary Disease-Associated Artery/Lesion type: [place] artery [place] vs. transplanted heart: [place] heart Is this a current diagnosis for this admission?: Yes - Notes Notes: Atrial fibrillation atrial fibrillation with rapid ventricular response: Placed on long-acting beta blockers, digoxin. Cardizem stopped. Continue Eliquis for chronic anticoagulation. These medication changes were performed in view of depressed LVEF.. CHF: Initial chest x-ray clearly reveals CHF. Most likely related to systolic and diastolic dysfunction. Continue baseline diuretic therapy. Currently on exam is compensated. Have added entresto. Continue metoprolol succinate and digoxin. Dyspnea: Possibly angina equivalent symptom. Nuclear stress test results were reviewed. Stress test felt to be equivocal due to suboptimal quality but patient is relatively asymptomatic and has not had any chest pains. Further evaluation with a heart catheterization recommended if patient has worsening symptoms are chest pains. This can be performed as an outpatient if needed. Hypertension: Reasonably well controlled. Blood pressure goal in this patient is 135/85 or less. This was discussed with the patient. Currently blood pressure under reasonable control. Diabetes: Recommend good control of blood sugar. However should avoid any hypoglycemia and hyperglycemia. Patient being expertly managed by primary care M.D/hospitalist Bronchitis: Continue antibiotic therapy. Possibly resolved. Coronary artery disease: CTA of the chest was reviewed. No pulmonary embolism noted. No pleural effusion noted. Coronary calcification was noted in the LAD and circumflex territory. Patient therefore has CAD. Medical regimen optimized. Patient was placed on Lipitor 40 mg p.o. nightly. LDL was noted to be high. Peripheral vascular disease: Patient describes a history of this and was on cilostazol. This was discontinued as patient has been stable and cilostazol can aggravate CHF. - Time Time Spent with patient: Significant time spent with the patient, her daughter and also the nurse taking care of this patient today who fortunately does speak fluent [place]. She was able to interpret the management plans and explained to the patient. Patient is felt safe for discharge and also safe for air travel of course she would need to continue on medications. Patient also advised to follow-up with her music mixer as soon as possible. Time with patient: Greater than 35 minutes - CODE STATUS was discussed, patient remains full code. Surrogate decision-maker unchanged. Multiple medical problems were addressed. More than 50% of the time spent coordinating care, discussing management plans with involved caregivers. Management plans discussed with involved personnels. Medical decision making was of moderate to high complexity, patient's has multiple comorbidities. Medications reviewed and adjusted accordingly: Yes
[2017-10-09 15:23] VITALS: BP 112/74
--- NOTE | 2017-10-28 21:18 | PDOC DISCHARGE SUMMARY ---
General - Admit/Disc Date/PCP Admission Date/Primary Care Provider: 10/02/17 04:19 Discharge Date: 10/09/17 - Discharge Diagnosis (1) CHF (congestive heart failure) Is this a current diagnosis for this admission?: Yes Summary: The patient was noted to have pulmonary edema with small pleural effusions on chest x-ray. ProBNP was elevated to 663. ECHOcardiogram shows mild concentric left ventricular hypertrophy, grade II/IV mild to moderate diastolic dysfunction, and LVEF 45% - although EKG gated imaging from stress test shows LVEF at 21%. Additional results from the stress test to include, possible signs of mild ischemia in the mid anterior and inferior wall, although the overall confidence of the stress test was low. Cardiac diet and daily weights. Continue diuresis with IV Lasix, change to PO tomorrow. Computer Application Developer is aware that the patient doesn't live in [place], and she cannot be instructed to follow up with a physician in [place]. The patient' s heart rate was eventually controlled by altering her medication regimen. 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 The patient states understanding. (2) Atrial fibrillation with RVR Is this a current diagnosis for this admission?: Yes Summary: Initially the patient's HR was managed with a Cardizem gtt, then transitioned to PO Cardizem. However, the patient's HR would climb to >120 whenever she was ambulating. Cardiology consulted. The patient's heart rate ranges from 80-95 and has experienced better heart rate control since the addition of metoprolol to her regimen. Following the patient's stress test, Dr. Mejia of cardiology discontinued the patient's Cardizem, and started her on digoxin and entresto. Continue Eliquis for anticoagulation 2/2 AFIB. (3) Bronchitis Is this a current diagnosis for this admission?: Yes Summary: The patient completed a course of doxyxycline for acute bronchitis. (4) Diabetes Is this a current diagnosis for this admission?: Yes Summary: Carb consistent diet. Initially managed with sliding scale insulin. Patient restarted on metformin but 1/2 dose because she states her home dose was "too strong." Adequate BG control achieved with this regimen. (5) HTN (hypertension) Is this a current diagnosis for this admission?: Yes Summary: Blood pressure well controlled. Computer Application Developer discontinued Cardizem, switched to metoprolol, digoxin, and entresto for better HR (and BP) control. (6) Sciatica, right side Is this a current diagnosis for this admission?: Yes Summary: Restarted home regimen of cymbalta and gabapentin for sciatica pain. Heating pad ordered and mobility encouraged. - Additional Information Resuscitation Status: Full Code Discharge Diet: Cardiac Discharge Activity: Activity As Tolerated Prescriptions: Atorvastatin Calcium [Lipitor 40 mg Tablet] 40 mg PO QHS 30 Days #30 tablet Digoxin [Lanoxin 0.125 mg Tablet] 0.125 mg PO DAILY #30 tablet Metformin HCl [Glucophage 500 mg Tablet] 250 mg PO BIDACBS 30 Days #60 tablet Metoprolol Succinate [Toprol Xl 25 mg Tab.sr] 50 mg PO Q12 30 Days #30 tab.sr.24h Sacubitril/Valsartan [Entresto 24 mg/26 mg Tablet] 1 tab PO Q12 30 Days #60 tablet Home Medications: Apixaban [Eliquis] 1 tab PO BID 10/02/17 Duloxetine HCl 1 cap PO DAILY 10/02/17 Gabapentin 1 cap PO DAILY 10/02/17 Glipizide 1 tab PO DAILY 10/02/17 Losartan Potassium 1 tab PO DAILY 10/02/17 Omeprazole 1 cap PO BID 10/02/17 Spironolactone 1 tab PO DAILY 10/02/17 Apixaban [Eliquis 5 mg Tablet] 5 mg PO Q12 tablet 10/09/17 Atorvastatin Calcium [Lipitor 40 mg Tablet] 40 mg PO QHS 30 Days #30 tablet 05/19 Digoxin [Lanoxin 0.125 mg Tablet] 0.125 mg PO DAILY #30 tablet 10/09/17 Metformin HCl [Glucophage 500 mg Tablet] 250 mg PO BIDACBS 30 Days #60 tablet Metoprolol Succinate [Toprol Xl 25 mg Tab.sr] 50 mg PO Q12 30 Days #30 tab.sr.24h 10/09/17 Sacubitril/Valsartan [Entresto 24 mg/26 mg Tablet] 1 tab PO Q12 30 Days #60 tablet 10/09/17 History of Present Illness Patient complains of: SOB History of Present Illness: ANOOP JHAVERI is a 77 year old Yakut-speaking only female with a past medical history of diabetes, osteoarthritis and atrial fibrillation who is visiting from [place]. Patient presents with 12 hours of palpitations and shortness of breath denying chest pain nausea vomiting. In the emergency room she is found to have uncontrolled A. fib with RVR in the 140s with a chest x- ray with mild pulmonary edema but otherwise unremarkable workup. Unclear if she has been taking Cardizem as directed. Patient treated in the ED with oxygen , IV Lasix, diltiazem gtt and referred to the hospitalist for admission. Hospital Course Hospital Course: as above Physical Exam Vital Signs: Temp Pulse Resp BP Pulse Ox 97.7 F 82 18 129/104 H 96 10/09/17 15:17 10/09/17 15:17 10/09/17 15:17 10/09/17 15:17 10/09/17 15:17 General appearance: PRESENT: no acute distress Eye exam: PRESENT: conjunctiva pink Mouth exam: PRESENT: moist Neck exam: PRESENT: full ROM. ABSENT: carotid bruit Respiratory exam: PRESENT: clear to auscultation sveta, symmetrical, unlabored Cardiovascular exam: PRESENT: irregular rhythm - ectopy. occasional pvc's Pulses: PRESENT: normal radial pulses, +1 pedal pulses bilateral GI/Abdominal exam: PRESENT: normal bowel sounds, soft Rectal exam: PRESENT: deferred Extremities exam: PRESENT: full ROM, pedal edema Musculoskeletal exam: PRESENT: ambulatory, full ROM Neurological exam: PRESENT: alert, awake, oriented to person, oriented to place , oriented to time, oriented to situation Psychiatric exam: PRESENT: appropriate affect Skin exam: PRESENT: normal color Results Laboratory Results: 10/04/17 04:26 10/09/17 04:52 10/02/17 10/02/17 10/02/17 09:55 15:40 21:45 Creatine Kinase CK-MB (CK-2) Troponin I 0.030 0.031 0.026 NT-Pro-B Natriuret Pep 10/03/17 10/03/17 10/09/17 04:19 04:19 04:52 Creatine Kinase 44 CK-MB (CK-2) 1.13 Troponin I NT-Pro-B Natriuret Pep 844 H Impressions: Chest X-Ray 10/03/17 00:00 IMPRESSION: CARDIAC ENLARGEMENT. VASCULAR CONGESTION. NO CHANGE. Chest/Abdomen CTA 10/08/17 09:00 IMPRESSION: No PE. No acute findings. Status: Imported from [facility] Qualifiers - * PATEINT BEING DISCHARGED WITH ANY OF THE FOLLOWING DIAGNOSIS?: Heart Failure HF Pt being discharged on ACEI for LVEF less than 40%?: Yes HF Pt being discharged on ARBS for LVEF less than 40%?: Yes HF Pt with Afib discharged with Warfarin?: Yes HF Pt discharged on evidence-based Beta Valentine:: Yes Plan Discharge Plan: Discharge home. With the use of a brand advocate, the patient was instructed to return to [facility] because she needs to be avaluated by her regular inspector paper [employer]. A number of her antiarrythmia and antihypertension medications were changed to optimize her cardiac output. The patient states that she understands the instructions. Time Spent: Greater than 30 Minutes
== END 2017-10-09 16:00 | disposition home or self-care (01) | DRG 308 ==
LOC: ER 02:39 → EH 04:19 → 3W 12:31
PROVIDERS: ADMIT Internal Medicine; ATTEND Internal Medicine
PROC: 3E0F73Z Introduction of Anti-inflammatory into Respiratory Tract, Via Natural or Artificial Opening (ICD-10-PCS; principal; 2017-10-02)
DX: I48.1 Persistent atrial fibrillation (principal); I50.43 Acute on chronic combined systolic (congestive) and diastolic (congestive) heart failure; I11.0 Hypertensive heart disease with heart failure; E11.9 Type 2 diabetes mellitus without complications; G25.81 Restless legs syndrome; J20.9 Acute bronchitis, unspecified; M54.31 Sciatica, right side; Z88.6 Allergy status to analgesic agent; Z88.0 Allergy status to penicillin; Z79.899 Other long term (current) drug therapy; Z83.3 Family history of diabetes mellitus; Z82.49 Family history of ischemic heart disease and other diseases of the circulatory system
CPT/HCPCS: 36415; 71045; 71046; 71275; 78452; 80048; 80053; 80061; 82550; 82553; 82962; 83735; 83880; 84443; 84484; 85025; 85027; 85379; 87040; 93005; 93010; 93017; 93306; 96365; 96375; 99285; A9500; J0280; J1644; J1815; J1885; J1940; J2060; J2785; J3490; J7620; Q9969